=== PATIENT | female | born 1980 | race American Indian/Alaskan Native ===

== ENCOUNTER 2018-01-09 08:37 | Outpatient (CLI) | payer MEDICARE ==
[2018-01-09] MEDS ORDERED: XYLOCAINE TOPICAL 4% TP ONE ×2 (09:07→09:12)
== END 2018-01-09 08:38 | disposition home or self-care (01) ==
LOC: WOUND 08:37
PROVIDERS: ATTEND Surgery
DX: S81.802D Unspecified open wound, left lower leg, subsequent encounter (principal); K21.9 Gastro-esophageal reflux disease without esophagitis; J45.909 Unspecified asthma, uncomplicated; X58.XXXD Exposure to other specified factors, subsequent encounter
CPT/HCPCS: 11042; 11045; 97605; G0463

== ENCOUNTER 2018-01-15 11:24 | Outpatient (CLI) | payer MEDICARE ==
[2018-01-15] MEDS ORDERED: XYLOCAINE TOPICAL 4% TP ONE (12:01)
== END 2018-01-15 11:25 | disposition home or self-care (01) ==
LOC: WOUND 11:24
PROVIDERS: ATTEND Surgery
DX: S81.802D Unspecified open wound, left lower leg, subsequent encounter (principal); K21.9 Gastro-esophageal reflux disease without esophagitis; J45.909 Unspecified asthma, uncomplicated; X58.XXXD Exposure to other specified factors, subsequent encounter
CPT/HCPCS: 29581; 97605

== ENCOUNTER 2018-01-22 10:50 | Outpatient (CLI) | payer MEDICARE ==
[2018-01-22] MEDS ORDERED: XYLOCAINE TOPICAL 4% TP ONE ×2 (11:22→15:00)
== END 2018-01-22 10:51 | disposition home or self-care (01) ==
LOC: WOUND 10:50
PROVIDERS: ATTEND Surgery
DX: S81.802D Unspecified open wound, left lower leg, subsequent encounter (principal); K21.9 Gastro-esophageal reflux disease without esophagitis; J45.909 Unspecified asthma, uncomplicated; X58.XXXD Exposure to other specified factors, subsequent encounter
CPT/HCPCS: 29581; 97605

== ENCOUNTER 2018-02-05 11:06 | Outpatient (CLI) | payer MEDICARE ==
[2018-02-05] MEDS ORDERED: XYLOCAINE TOPICAL 4% TP ONE ×2 (11:32→11:51)
== END 2018-02-05 11:07 | disposition home or self-care (01) ==
LOC: WOUND 11:06
PROVIDERS: ATTEND Surgery
DX: S81.802D Unspecified open wound, left lower leg, subsequent encounter (principal); K21.9 Gastro-esophageal reflux disease without esophagitis; J45.909 Unspecified asthma, uncomplicated; X58.XXXD Exposure to other specified factors, subsequent encounter
CPT/HCPCS: 29581; 97605

== ENCOUNTER 2018-02-12 10:00 | Outpatient (CLI) | payer MEDICARE ==
[2018-02-12] MEDS ORDERED: XYLOCAINE TOPICAL 4% TP ONE ×2 (10:18→10:44)
== END 2018-02-12 10:01 | disposition home or self-care (01) ==
LOC: WOUND 10:00
PROVIDERS: ATTEND Surgery
DX: S81.802D Unspecified open wound, left lower leg, subsequent encounter (principal); K21.9 Gastro-esophageal reflux disease without esophagitis; J45.909 Unspecified asthma, uncomplicated; X58.XXXD Exposure to other specified factors, subsequent encounter
CPT/HCPCS: 29581

== ENCOUNTER 2018-02-19 10:34 | Outpatient (CLI) | payer MEDICARE ==
[~2018-02-19 10:34] MED LIST: XYLOCAINE TOPICAL 4% TP ONE
[2018-02-19] MEDS ORDERED: XYLOCAINE TOPICAL 4% TP ONE (10:57)
== END 2018-02-19 10:35 | disposition home or self-care (01) ==
LOC: WOUND 10:34
PROVIDERS: ATTEND Surgery
DX: S81.802D Unspecified open wound, left lower leg, subsequent encounter (principal); K21.9 Gastro-esophageal reflux disease without esophagitis; J45.909 Unspecified asthma, uncomplicated; X58.XXXD Exposure to other specified factors, subsequent encounter
CPT/HCPCS: 29581

== ENCOUNTER 2018-02-26 11:05 | Outpatient (CLI) | payer MEDICARE ==
[2018-02-26] MEDS ORDERED: XYLOCAINE TOPICAL 4% TP ONE ×2 (11:33→11:42)
== END 2018-02-26 11:06 | disposition home or self-care (01) ==
LOC: WOUND 11:05
PROVIDERS: ATTEND Surgery
DX: S81.802D Unspecified open wound, left lower leg, subsequent encounter (principal); K21.9 Gastro-esophageal reflux disease without esophagitis; X58.XXXD Exposure to other specified factors, subsequent encounter
CPT/HCPCS: 29581

== ENCOUNTER → 2018-03-12 | Outpatient (CLI) | payer MEDICARE | END | disposition home or self-care (01) | LOC: WOUND 10:19 | PROVIDERS: ATTEND Surgery | DX: S81.802D Unspecified open wound, left lower leg, subsequent encounter (principal); K21.9 Gastro-esophageal reflux disease without esophagitis; X58.XXXD Exposure to other specified factors, subsequent encounter ==

== ENCOUNTER 2018-04-23 10:46 | Outpatient (CLI) | payer MEDICARE ==
[2018-04-23] MEDS ORDERED: XYLOCAINE TOPICAL 4% TP ONE ×2 (10:58→11:58)
== END 2018-04-23 10:47 | disposition home or self-care (01) ==
LOC: WOUND 10:46
PROVIDERS: ATTEND Surgery
DX: S81.802D Unspecified open wound, left lower leg, subsequent encounter (principal); K21.9 Gastro-esophageal reflux disease without esophagitis; X58.XXXD Exposure to other specified factors, subsequent encounter

== ENCOUNTER 2018-04-30 10:52 | Outpatient (CLI) | payer MEDICARE | END 2018-04-30 10:53 | disposition home or self-care (01) | LOC: WOUND 10:52 | PROVIDERS: ATTEND Surgery | DX: S81.802D Unspecified open wound, left lower leg, subsequent encounter (principal); K21.9 Gastro-esophageal reflux disease without esophagitis; X58.XXXD Exposure to other specified factors, subsequent encounter ==

== ENCOUNTER 2018-05-21 10:57 | Outpatient (CLI) | payer MEDICARE ==
[2018-05-21] MEDS ORDERED: XYLOCAINE TOPICAL 4% TP ONE ×2 (11:09→11:11)
== END 2018-05-21 10:58 | disposition home or self-care (01) ==
LOC: WOUND 10:57
PROVIDERS: ATTEND Surgery
DX: S81.802D Unspecified open wound, left lower leg, subsequent encounter (principal); K21.9 Gastro-esophageal reflux disease without esophagitis; J45.909 Unspecified asthma, uncomplicated; X58.XXXD Exposure to other specified factors, subsequent encounter

== ENCOUNTER 2018-07-31 14:08 | Inpatient (IN) | payer MEDICARE ==
[2018-07-31] MEDS ORDERED: ATROVENT IH ONE (14:24)
[2018-07-31] MEDS ORDERED: NACL 0.9% 1000 ML 1,000 ML IV ONE (14:24)
[2018-07-31] MEDS ORDERED: PROVENTIL IH ONE (14:24)
[2018-07-31] MEDS ORDERED: SOLU-Medrol IV ONE (14:24)
--- NOTE | 2018-07-31 14:30 | Emergency Department Report ---
ED Shortness of Breath HPI - General Chief Complaint: Dyspnea/Respdistress Stated Complaint: SHORTNESS OF BREATH Time Seen by Provider: 07/31/18 14:10 Source: EMS, old records reviewed Mode of arrival: Stretcher Limitations: No Limitations - History of Present Illness Initial Comments: 38-year-old female with a past medical history of asthma, obesity, t hrombocytopenia, and GERD presents to the hospital complaining of progressively worsening shortness of breath 3 days. Patient using inhaler without improvement. Cough productive of clear sputum reported. Patient went to urgent care center today because she had headache, dizziness, and generalized weakness as well as shortness of breath. She denies pain, leg edema, fevers, home oxygen use, orthopnea, or PND. She is referred to the ED for evaluation. Patient was prescribed a nebulizer by the urgent care clinic. Patient does not use home oxygen therapy. Patient also states she takes steroids 3 times a week for thrombocytopenia. Night Monitor: Dr. LEVY No complaints of PMD: Dr. Perry - Related Data Home Medications Medication Instructions Recorded Confirmed Last Taken Prevacid 40 mg PO DAILY 11/20/17 12/20/17 11/19/17 Previous Rx's Medication Instructions Recorded Last Taken Type Acetaminophen [Acetaminophen TAB] 650 mg PO Q4H PRN #30 tablet 12/21/17 Unknown Rx Amoxicillin/Potassium Clav 1 each PO BID #42 tablet 12/21/17 Unknown Rx [Augmentin 875-125 Tablet] HYDROcodone/APAP 5-325 [[place] 1 each PO Q4H PRN #20 tablet 12/21/17 Unknown Rx 5-325 mg TAB] Pantoprazole [Protonix TAB] 40 mg PO DAILY #30 tablet 12/21/17 Unknown Rx Allergies Allergy/AdvReac Type Severity Reaction Status Date / Time No Known Allergies Allergy Unverified 06/02/16 19:34 ED Review of Systems ROS: Stated complaint: SHORTNESS OF BREATH Other details as noted in HPI Comment: All other systems reviewed and negative ED Past Medical Hx - Past Medical History Hx GERD: Yes Hx Asthma: Yes Additional medical history: obesity. Thrombocytopenia - Social History Smoking Status: Never Smoker - Medications Home Medications: Home Medications Medication Instructions Recorded Confirmed Last Taken Type Prevacid 40 mg PO DAILY 11/20/17 12/20/17 11/19/17 History Acetaminophen [Acetaminophen TAB] 650 mg PO Q4H PRN #30 tablet 12/21/17 Unknown Rx Amoxicillin/Potassium Clav 1 each PO BID #42 tablet 12/21/17 Unknown Rx [Augmentin 875-125 Tablet] HYDROcodone/APAP 5-325 [[place] 1 each PO Q4H PRN #20 tablet 12/21/17 Unknown Rx 5-325 mg TAB] Pantoprazole [Protonix TAB] 40 mg PO DAILY #30 tablet 12/21/17 Unknown Rx ED Physical Exam - General Limitations: No Limitations - Other Other exam information: General: No limitations, patient is alert in no acute distress Head exam: Atraumatic, normocephalic Eyes exam: Normal appearance, pupils equal reactive to light, extraocular movements intact ENT: Moist mucous membrane, normal oropharynx Neck exam: Normal inspection, full range of motion, no meningismus nontender Respiratory exam: No tachypnea or accessory muscle use. Patient has mild crackles at bilateral bases with expiratory wheeze Cardiovascular: Tachycardia regular rhythm Abdomen: Soft, nondistended, and nontender, with normal bowel sounds, no rebound, or guarding Extremity: Full range of motion, no edema or calf tenderness. Distal anterior left leg healed long from previous infected ulcer Back: Normal Inspection, full range of motion, no tenderness Neurologic: Alert, oriented x3, cranial nerves intact, no motor or sensory deficit Psychiatric: normal affect, normal mood Skin: Warm, dry, intact ED Course Vital Signs 07/31/18 07/31/18 14:12 14:45 Temperature 98.0 F Pulse Rate 121 H Pulse Rate [ 110 H Anterior Bilateral Throughout] Respiratory 26 H Rate Respiratory 18 Rate [Anterior Bilateral Throughout] Blood Pressure 129/84 O2 Sat by Pulse 92 Oximetry - Reevaluation(s) Reevaluation #1: 07/31/18 16:02 Initial CBC values not released by lab. Repeat ordered and pending at disposition ED Medical Decision Making - Lab Data Result diagrams: 07/31/18 14:44 07/31/18 14:44 - EKG Data -: EKG Interpreted by Me EKG shows normal: sinus rhythm, axis (qrs 33), QRS complexes (qrsd 90), ST-T waves (ant and lat t wave inv) Rate: tachycardia (113) - EKG Data When compared to previous EKG there are: previous EKG unavailable - Radiology Data Radiology results: report reviewed FINAL REPORT EXAM: XR CHEST ROUTINE 2V HISTORY: Shortness of breath COMPARISON: None. TECHNIQUE: Frontal and lateral views of the chest FINDINGS: The cardiomediastinal silhouette is normal in appearance. There are hazy opacities at the bilateral lung bases. There is mild blunting of the bilateral costophrenic angles. There is no acute bony or soft tissue abnormality. IMPRESSION: Hazy opacities at the bilateral lung bases, that may reflect atelectasis or infiltrate. Blunting of the bilateral costophrenic angles that may represent small pleural effusions. - Medical Decision Making Patient has significant bilateral crackles, elevated BNP, and a mildly elevated troponin. Patient does have a cough productive of clear sputum with very minimal wheezing. Differential includes infectious versus failure. Rocephin and azithromycin provided for possible pneumonia. I discontinued 1 L bolus no rmal saline after 200 mL because crackles persist. Repeat CBC pending at disposition. Aspirin was ordered for elevated troponin. Patient also has elevated CK and states she only takes an inhaler, vacation for GERD, and a steroid 3 times a day for her platelet count. - Differential Diagnosis asthma, bronchitis, pneumonia, CHF, viral syndrome, PE Critical Care Time: No Critical care attestation.: If time is entered above; I have spent that time in minutes in the direct care of this critically ill patient, excluding procedure time. ED Disposition Clinical Impression: Bilateral pneumonia, Elevated CK, Elevated brain natriuretic peptide (BNP) level, Elevated troponin, Hx of thrombocytopenia, Hyperkalemia Disposition: OP ADMIT IP TO THIS HOSP Is pt being admited?: Yes Does the pt Need Aspirin: Yes Condition: Stable Time of Disposition: 16:13 (Dr hawley/hosp)
[2018-07-31] MEDS ORDERED: MAGNESIUM SULFATE 2GM/50ML 2 GM/50 ML BAG IV ONE (15:20)
[2018-07-31 15:29] LABS: BUN/Creatinine Ratio 28; Blood Urea Nitrogen 11 mg/dL (7-17); Calcium 8.6 mg/dL (8.4-10.2); Hemolysis Index 283; INR 1.1 (0.87-1.13)
[2018-07-31 15:35] LABS: Creatine Kinase MB 11.8 ng/mL (0.0-4.0)
--- NOTE | 2018-07-31 15:50 | XRay Report ---
FINAL REPORT EXAM: XR CHEST ROUTINE 2V HISTORY: Shortness of breath COMPARISON: None. TECHNIQUE: Frontal and lateral views of the chest FINDINGS: The cardiomediastinal silhouette is normal in appearance. There are hazy opacities at the bilateral lung bases. There is mild blunting of the bilateral costoph renic angles. There is no acute bony or soft tissue abnormality. IMPRESSION: Hazy opacities at the bilateral lung bases, that may reflect atelectasis or infiltrate. Blunting of the bilateral costophrenic angles that may represent small pleural effusions.
[2018-07-31] MEDS ORDERED: ASPIRIN PO ONE (15:55)
[2018-07-31 15:58] LABS: Hematocrit TNR % (30.3-42.9); Hemoglobin TNR gm/dl (10.1-14.3); Mean Corpuscular Volume TNR fl (79-97); Red Blood Count TNR M/mm3 (3.65-5.03)
[2018-07-31 15:59] LABS: Mean Corpuscular HGB Conc TNR % (30-34); Mean Platelet Volume TNR fl (6-12); Platelet Count TNR K/mm3 (140-440); Red Cell Distribution Width TNR % (13.2-15.2)
[2018-07-31 16:00] LABS: Lymphocytes % (Auto) TNR % (13.4-35.0)
[2018-07-31] MEDS ORDERED: ROCEPHIN/NS 1 GM/50 ML 1 GM/50 ML BAG IV ONE (16:00)
[2018-07-31 16:01] LABS: Basophils # (Auto) TNR K/mm3 (0.0-0.1); Basophils % (Auto) TNR % (0.0-1.8); Eosinophils # (Auto) TNR K/mm3 (0.0-0.4); Eosinophils % (Auto) TNR % (0.0-4.3); Lymphocytes # (Auto) TNR K/mm3 (1.2-5.4); Monocytes # (Auto) TNR K/mm3 (0.0-0.8); Monocytes % (Auto) TNR % (0.0-7.3)
[2018-07-31 16:40] LABS: Chol/HDL Ratio 2.25 %
[2018-07-31 16:58] LABS: Mean Corpuscular HGB Conc 31 % (30-34); Mean Corpuscular Volume 75 fl (79-97); Platelet Count 100 K/mm3 (140-440); Red Blood Count 5.17 M/mm3 (3.65-5.03); Red Cell Distribution Width 16.2 % (13.2-15.2)
[2018-07-31] MEDS ORDERED: ZITHROMAX 500 MG in NACL 0.9% 250ML 250 ML IV ONE (17:00)
[2018-07-31 17:55] LABS: Basophils % (Manual) 0 % (0.0-1.8); Eosinophils % (Manual) 0 % (0.0-4.3); Monocytes % (Manual) 0 % (0.0-7.3); Total Cells Counted 100
[2018-07-31 17:56] LABS: Anisocytosis 1+; Ovalocytes Few; Poikilocytosis 1+
[2018-07-31 17:57] LABS: Platelet Estimate Consistent w Auto; Target Cells Few
[2018-07-31] MEDS ORDERED: ROCEPHIN IM ONE (20:22)
[2018-07-31] MEDS ORDERED: TYLENOL PO PRN (22:07)
[2018-07-31] MEDS ORDERED: SODIUM CHLORIDE FLUSH SYRINGE 10 ML IV PRN (22:07)
[2018-07-31] MEDS ORDERED: ZOFRAN IV PRN (22:07)
[2018-07-31] MEDS: PERCOCET 5/325 PO PRN (23:05)
[2018-07-31] MEDS: SOLU-Medrol IV SCH (23:07)
[2018-08-01] MEDS: SOLU-Medrol IV SCH ×4 (00:43→19:25)
--- NOTE | 2018-08-01 07:19 | Event Note ---
Date: 07/31/18 Please see H/p in Reports
--- NOTE | 2018-08-01 07:46 | History and Physical Report ---
CHIEF COMPLAINT: Increasing shortness of breath for 3 days. HISTORY OF PRESENT ILLNESS: A 66-tenur-bel female with past medical history of asthma, obesity, thrombocytopenia, presents with worsening shortness of breath for the last 3 days. Cough productive of mucoid sputum. The patient went to urgent care, was referred to the ER for evaluation. The patient was given a nebulizer treatment in the Emergency Room. PAST MEDICAL HISTORY: Significant for asthma and gastroesophageal reflux disease, obesity, thrombocytopenia. SOCIAL HISTORY: Does not smoke. PAST SURGICAL HISTORY: None. FAMILY HISTORY: Hypertension. REVIEW OF SYSTEMS: Significant for shortness of breath and wheezing. PHYSICAL EXAMINATION: GENERAL: A middle-aged female, cooperative during examination, in slight respiratory distress. VITAL SIGNS: Blood pressure is 136/86, temperature 98.4, pulse is 121, respirations are 18, sats are 81-82%. HEENT: Unremarkable. NECK: Supple, no lymphadenopathy, no thyromegaly. LUNGS: Scattered rhonchi bilaterally. CARDIOVASCULAR: Accessory muscles of respiration are prominent. CARDIOVASCULAR: S1, S2 heard. No gallop, no murmur, no rub. Apical impulse in the left fifth intercostal space and midclavicular line. ABDOMEN: Soft and benign. No hepatosplenomegaly. No guarding, no rigidity. Hernial orifices are normal. EXTREMITIES: Good pedal pulses. No pedal edema. DIAGNOSTIC STUDIES: Chest x-ray shows hazy opacity bilateral lung bases that may reflect infiltrate. Blunting of the bilateral costophrenic angles that may represent pleural effusion. LABORATORY DATA: Significant for white count of 12,400, H and H are 12.0 and 39.0, MCH is low, platelet count is 100,000. Electrolytes: Sodium of 136, potassium of 5.2, bicarbonate of 25, chloride of 97.5, total creatinine kinase is 1119. Troponin is 0.079, 0.065. and 0.049. BNP is 15,817. ASSESSMENT AND PLAN: 1. Acute respiratory failure. The patient has low sats. The patient's clinical picture consistent with CHF exacerbation. BNP is 15,817. Lasix initiated. Echocardiogram ordered. 2. Chronic obstructive pulmonary disease exacerbation. The patient on DuoNeb and Levaquin and low dose Solu-Medrol. 3. Elevated troponin secondary to elevated creatinine kinase. Mild rhabdomyolysis. IV fluids gently because of the CHF. 4. Hyponatremia, mild. 5. Hyperkalemia, mild, should correct with the Lasix. 6. Deep venous thrombosis prophylaxis, Lovenox 40 mg subcutaneous daily. JOB# [id number] ESCOBAR/NTS
[2018-08-01] MEDS ORDERED: LASIX IV SCH (08:00)
[2018-08-01 08:18] LABS: Basophils % (Auto) 0.2 % (0.0-1.8); Hematocrit 35.3 % (30.3-42.9); Lymphocytes # (Auto) 0.9 K/mm3 (1.2-5.4); Lymphocytes % (Auto) 15.2 % (13.4-35.0); Mean Corpuscular HGB Conc 31 % (30-34); Mean Corpuscular Volume 75 fl (79-97); Monocytes # (Auto) 0.7 K/mm3 (0.0-0.8); Monocytes % (Auto) 10.6 % (0.0-7.3); Red Blood Count 4.71 M/mm3 (3.65-5.03); Red Cell Distribution Width 15.9 % (13.2-15.2)
[2018-08-01 08:41] LABS: Alanine Aminotransferase 37 units/L (7-56); Albumin 3.6 g/dL (3.9-5); BUN/Creatinine Ratio 26; Blood Urea Nitrogen 13 mg/dL (7-17); Calcium 8.7 mg/dL (8.4-10.2); Hemolysis Index 29
[2018-08-01] MEDS: DUONEB *Not for PRN Use IH SCH ×4 (09:07→20:53)
[2018-08-01] MEDS: PEPCID IV SCH ×2 (09:28→21:43)
[2018-08-01] MEDS ORDERED: K-DUR PO SCH (10:00)
[2018-08-01 10:22] LABS: Platelet Count 113 K/mm3 (140-440)
[2018-08-01] MEDS: SODIUM CHLORIDE FLUSH SYRINGE 10 ML IV SCH ×2 (12:06→21:46)
[2018-08-01] MEDS: ROCEPHIN/NS 2 GM/100 ML 2 GM/100 ML BAG IV SCH (12:06)
--- NOTE | 2018-08-01 13:08 | Consultation ---
History of Present Illness Consult date: 08/01/18 Requesting physician: GIANLUCA LEMA Consult reason: shortness of breath History of present illness: The pt is a 38-year-old female with a past medical history of asthma, obesity, thrombocytopenia, and GERD. She is previously unknown to our practice. She presented to the hospital complaining of progressively worsening shortness of breath 3 days. Patient using inhaler without improvement. Cough productive of clear sputum reported. Patient went to urgent care center yesterday because she had headache, dizziness, and generalized weakness as well as shortness of breath. She was told her O2 sat was "low" and was referred from urgent care to the ED for evaluation. Patient was prescribed a nebulizer by the urgent care clinic. Patient does not use home oxygen therapy. Patient also states she takes steroids 3 times a week for thrombocytopenia. Tracer Bullet Charging Machine Operator: Dr. LEVY; PMD: Dr. Perry. She denies any prior cardiac issues, including CAD, AMI or HF. She denies any prior cardiac evaluation. Past History Past Medical History: GERD, other (asthma) Social history: denies: smoking, alcohol abuse, prescription drug abuse Medications and Allergies Allergies Allergy/AdvReac Type Severity Reaction Status Date / Time No Known Allergies Allergy Unverified 06/02/16 19:34 Home Medications Medication Instructions Recorded Confirmed Last Taken Type Pantoprazole [Protonix TAB] 40 mg PO DAILY #30 tablet 12/21/17 07/31/18 Unknown Rx Active Meds: Active Medications Acetaminophen (Tylenol) 650 mg PO Q4H PRN PRN Reason: Pain MILD(1-3)/Fever >100.5/BROWN Albuterol/Ipratropium (Duoneb *Not For Prn Use*) 1 ampul IH QIDRT [facility] Last Admin: 08/01/18 09:07 Dose: 1 ampul Documented by: Famotidine (Pepcid) 20 mg IV BID [facility] Last Admin: 08/01/18 09:28 Dose: 20 mg Documented by: Furosemide (Lasix) 40 mg IV QAM@0800 [facility] Last Admin: 08/01/18 09:29 Dose: 40 mg Documented by: Hydromorphone HCl (Dilaudid) 0.5 mg IV Q3H PRN PRN Reason: Pain , Severe (7-10) Ceftriaxone Sodium (Rocephin/Ns 2 Gm/100 Ml) 2 gm in 100 mls @ 200 mls/hr IV Q24HR [facility]; Protocol Last Admin: 08/01/18 12:06 Dose: 200 mls/hr Documented by: Methylprednisolone Sodium Succinate (Solu-Medrol) 40 mg IV Q8H [facility] Last Admin: 08/01/18 09:28 Dose: 40 mg Documented by: Ondansetron HCl (Zofran) 4 mg IV Q8H PRN PRN Reason: Nausea And Vomiting Oxycodone/Acetaminophen (Percocet 5/325) 1 tab PO Q6H PRN PRN Reason: Pain, Moderate (4-6) Last Admin: 07/31/18 23:05 Dose: 1 tab Documented by: Potassium Chloride (K-Dur) 20 meq PO QDAY [facility] Last Admin: 08/01/18 09:29 Dose: 20 meq Documented by: Sodium Chloride (Sodium Chloride Flush Syringe 10 Ml) 10 ml IV BID [facility] Last Admin: 08/01/18 12:06 Dose: 10 ml Documented by: Sodium Chloride (Sodium Chloride Flush Syringe 10 Ml) 10 ml IV PRN PRN PRN Reason: LINE FLUSH Review of Systems Constitutional: no fever, no chills, no sweats Ears, nose, mouth and throat: no ear pain, no nose pain, no sinus pressure, no sinus pain Cardiovascular: shortness of breath, no chest pain, no orthopnea, no palpitations, no rapid/irregular heart beat, no edema, no syncope, no lightheadedness, no high blood pressure, no leg edema Respiratory: cough, shortness of breath, congestion, wheezing, no pain on inspiration Gastrointestinal: no abdominal pain, no nausea, no vomiting, no diarrhea, no constipation Genitourinary Female: no pelvic pain, no flank pain, no dysuria, no urinary frequency, no urgency Musculoskeletal: no neck stiffness, no neck pain, no shooting arm pain, no arm numbness/tingling, no low back pain, no shooting leg pain Integumentary: no rash, no pruritis, no redness, no sores, no wounds Neurological: no head injury, no paralysis, no weakness, no parathesias, no numbness, no tingling, no seizures, no syncope Psychiatric: no anxiety Endocrine: no cold intolerance, no heat intolerance Hematologic/Lymphatic: no easy bruising, no easy bleeding Allergic/Immunologic: no urticaria, no wheezing Physical Examination Vital Signs Temp Pulse Resp BP Pulse Ox 98.0 F 121 H 26 H 129/84 92 07/31/18 14:12 07/31/18 14:12 07/31/18 14:12 07/31/18 14:12 07/31/18 14:12 General appearance: no acute distress HEENT: Positive: PERRL, Normocephaly, Mucus Membranes Moist Neck: Positive: neck supple, trachea midline Cardiac: Positive: Reg Rate and Rhythm, S1/S2 Lungs: Positive: Wheezes Neuro: Positive: Grossly Intact Abdomen: Positive: Soft. Negative: Tender Skin: Negative: Rash, Wound Musculoskeletal: No Pain Extremities: Absent: edema Results 08/01/18 07:40 08/01/18 07:40 Cardiac Enzymes 07/31/18 08/01/18 Range/Units 14:44 07:40 AST 29 (5-40) units/L CK-MB (CK-2) 11.8 H (0.0-4.0) ng/mL Coagulation 07/31/18 Range/Units 14:44 PT 14.6 (12.2-14.9) Sec. INR 1.10 (0.87-1.13) Lipids 07/31/18 Range/Units 14:44 Triglycerides 90 (2-149) mg/dL Cholesterol 151 (50-199) mg/dL HDL Cholesterol 67 H (40-59) mg/dL Cholesterol/HDL Ratio 2.25 % CBC 07/31/18 07/31/18 08/01/18 Range/Units 14:44 16:20 07:40 WBC TNR 12.4 H 6.2 RBC TNR 5.17 H 4.71 Hgb TNR 12.0 11.0 Hct TNR 39.0 35.3 Plt Count TNR 100 L 113 L Lymph # TNR 0.9 L [place] # TNR 0.7 Eos # TNR 0.0 Baso # TNR 0.0 Comprehensive Metabolic Panel 07/31/18 08/01/18 Range/Units 14:44 07:40 Sodium 136 L 138 (137-145) mmol/L Potassium 5.2 H 4.7 (3.6-5.0) mmol/L Chloride 97.5 L 101.6 (98-107) mmol/L Carbon Dioxide 25 24 (22-30) mmol/L BUN 11 13 (7-17) mg/dL Creatinine 0.4 L 0.5 L (0.7-1.2) mg/dL Glucose 120 H 137 H (65-100) mg/dL Calcium 8.6 8.7 (8.4-10.2) mg/dL AST 29 (5-40) units/L ALT 37 (7-56) units/L Alkaline Phosphatase 67 (35-129) units/L Total Protein 7.4 (6.3-8.2) g/dL Albumin 3.6 L (3.9-5) g/dL - Imaging and Cardiology Echo: report reviewed EKG: report reviewed, image reviewed EKG interpretations - Telemetry EKG Rhythm: Sinus Rhythm - EKG Sinus rhythms and dysrhythmias: sinus tachycardia Repolarization changes or abnormalities: nonspecific abnormality, ST segment, and/or T wave Assessment and Plan Echo reviewed - EF 35-40%, RV mild to mod dilated, RA mildly dilated, mod pulm HTN, increased RA pressure. Increase IV lasix to BID dosing. Will not initiate BB at this time in setting of asthma exacerbation. Consider lexiscan MPI stress test to r/o ischemic CMP once medically stabilized - this can be done as OP. The patient has been seen in conjunction with Dr. De Guzman who agrees with the assessment and plan of care. - Patient Problems (1) Acute HFrEF (heart failure with reduced ejection fraction) Current Visit: Yes Status: Acute (2) Cardiomyopathy Current Visit: Yes Status: Chronic (3) Pneumonia Current Visit: Yes Status: Acute (4) Asthma exacerbation Current Visit: Yes Status: Acute (5) Thrombocytopenia Current Visit: Yes Status: Chronic (6) GERD (gastroesophageal reflux disease) Current Visit: Yes Status: Chronic Qualifiers: Esophagitis presence: without esophagitis Qualified Code(s): K21.9 - Gastro-esophageal reflux disease without esophagitis (7) Obesity Current Visit: Yes Status: Chronic
--- NOTE | 2018-08-01 17:03 | Progress Note ---
Assessment and Plan Assessment and plan: Acute systolic CHF EF 30-35% Lasix iv cardiology following Asthma Hyperkalemia Now resolved Obesity. I counseled her on diet and exercise Possible pneumonia as per CXR Empiric iv Abx Repeat CXR in few days History Interval history: shortness of breath Hospitalist Physical - Physical exam Narrative exam: GEN: Not in acute distress, obese HEENT: Normocephalic, atraumatic, Neck: supple, No JVD Lungs: Bilateral crackles, no wheeze Heart:S1 and S2 regular, no murmurs, rubs or gallop, Abd:soft, non tender, non distended, normal bowel sounds Ext: No edema, no clubbing or cyanosis Neuro: AAO x 3, No focal signs - Constitutional Vitals: Temp Pulse Resp BP Pulse Ox 97.9 F 99 H 18 133/78 91 08/01/18 16:02 08/01/18 16:02 08/01/18 16:02 08/01/18 16:02 08/01/18 16:02 General appearance: Present: no acute distress Results - Labs CBC & Chem 7: 08/01/18 07:40 08/01/18 07:40 Labs: Laboratory Last Values WBC 6.2 K/mm3 (4.5-11.0) 08/01/18 07:40 RBC 4.71 M/mm3 (3.65-5.03) 08/01/18 07:40 Hgb 11.0 gm/dl (10.1-14.3) 08/01/18 07:40 Hct 35.3 % (30.3-42.9) 08/01/18 07:40 MCV 75 fl (79-97) L 08/01/18 07:40 MCH 23 pg (28-32) L 08/01/18 07:40 MCHC 31 % (30-34) 08/01/18 07:40 RDW 15.9 % (13.2-15.2) H 08/01/18 07:40 Plt Count 113 K/mm3 (140-440) L 08/01/18 07:40 Lymph % (Auto) 15.2 % (13.4-35.0) 08/01/18 07:40 [place] % (Auto) 10.6 % (0.0-7.3) H 08/01/18 07:40 Eos % (Auto) 0.0 % (0.0-4.3) 08/01/18 07:40 Baso % (Auto) 0.2 % (0.0-1.8) 08/01/18 07:40 Lymph # 0.9 K/mm3 (1.2-5.4) L 08/01/18 07:40 [place] # 0.7 K/mm3 (0.0-0.8) 08/01/18 07:40 Eos # 0.0 K/mm3 (0.0-0.4) 08/01/18 07:40 Baso # 0.0 K/mm3 (0.0-0.1) 08/01/18 07:40 Add Manual Diff Complete 07/31/18 16:20 Total Counted 100 07/31/18 16:20 Seg Neutrophils % 74.0 % (40.0-70.0) H 08/01/18 07:40 Seg Neuts % (Manual) 99.0 % (40.0-70.0) H 07/31/18 16:20 Band Neutrophils % 0 % 07/31/18 16:20 Lymphocytes % (Manual) 1.0 % (13.4-35.0) L 07/31/18 16:20 Reactive Lymphs % (Man) 0 % 07/31/18 16:20 Monocytes % (Manual) 0 % (0.0-7.3) 07/31/18 16:20 Eosinophils % (Manual) 0 % (0.0-4.3) 07/31/18 16:20 Basophils % (Manual) 0 % (0.0-1.8) 07/31/18 16:20 Metamyelocytes % 0 % 07/31/18 16:20 Myelocytes % 0 % 07/31/18 16:20 Promyelocytes % 0 % 07/31/18 16:20 Blast Cells % 0 % 07/31/18 16:20 Nucleated RBC % Not Reportable 07/31/18 16:20 Seg Neutrophils # 4.6 K/mm3 (1.8-7.7) 08/01/18 07:40 Seg Neutrophils # Man 12.3 K/mm3 (1.8-7.7) H 07/31/18 16:20 Band Neutrophils # 0.0 K/mm3 07/31/18 16:20 Lymphocytes # (Manual) 0.1 K/mm3 (1.2-5.4) L 07/31/18 16:20 Abs React Lymphs (Man) 0.0 K/mm3 07/31/18 16:20 Monocytes # (Manual) 0.0 K/mm3 (0.0-0.8) 07/31/18 16:20 Eosinophils # (Manual) 0.0 K/mm3 (0.0-0.4) 07/31/18 16:20 Basophils # (Manual) 0.0 K/mm3 (0.0-0.1) 07/31/18 16:20 Metamyelocytes # 0.0 K/mm3 07/31/18 16:20 Myelocytes # 0.0 K/mm3 07/31/18 16:20 Promyelocytes # 0.0 K/mm3 07/31/18 16:20 Blast Cells # 0.0 K/mm3 07/31/18 16:20 WBC Morphology Not Reportable 07/31/18 16:20 Hypersegmented Neuts Not Reportable 07/31/18 16:20 Hyposegmented Neuts Not Reportable 07/31/18 16:20 Hypogranular Neuts Not Reportable 07/31/18 16:20 Smudge Cells Not Reportable 07/31/18 16:20 Toxic Granulation Not Reportable 07/31/18 16:20 Toxic Vacuolation Not Reportable 07/31/18 16:20 Dohle Bodies Not Reportable 07/31/18 16:20 Pelger-Huet Anomaly Not Reportable 07/31/18 16:20 Laura Rods Not Reportable 07/31/18 16:20 Platelet Estimate Consistent w auto 07/31/18 16:20 Clumped Platelets Not Reportable 07/31/18 16:20 Plt Clumps, EDTA Not Reportable 07/31/18 16:20 Large Platelets Not Reportable 07/31/18 16:20 Giant Platelets Not Reportable 07/31/18 16:20 Platelet Satelliting Not Reportable 07/31/18 16:20 Plt Morphology Comment Not Reportable 07/31/18 16:20 RBC Morphology Not Reportable 07/31/18 16:20 Dimorphic RBCs Not Reportable 07/31/18 16:20 Polychromasia Few 07/31/18 16:20 Hypochromasia Not Reportable 07/31/18 16:20 Poikilocytosis 1+ 07/31/18 16:20 Anisocytosis 1+ 07/31/18 16:20 Microcytosis 1+ 07/31/18 16:20 Macrocytosis Not Reportable 07/31/18 16:20 Spherocytes Not Reportable 07/31/18 16:20 Pappenheimer Bodies Not Reportable 07/31/18 16:20 Sickle Cells Not Reportable 07/31/18 16:20 Target Cells Few 07/31/18 16:20 Tear Drop Cells Not Reportable 07/31/18 16:20 Ovalocytes Few 07/31/18 16:20 Helmet Cells Not Reportable 07/31/18 16:20 [place] Bodies Not Reportable 07/31/18 16:20 [place] Rings Not Reportable 07/31/18 16:20 [place] Cells Not Reportable 07/31/18 16:20 Bite Cells Not Reportable 07/31/18 16:20 Crenated Cell Not Reportable 07/31/18 16:20 Elliptocytes Not Reportable 07/31/18 16:20 Acanthocytes (Spur) Not Reportable 07/31/18 16:20 Rouleaux Not Reportable 07/31/18 16:20 Hemoglobin C Crystals Not Reportable 07/31/18 16:20 Schistocytes Not Reportable 07/31/18 16:20 Malaria parasites Not Reportable 07/31/18 16:20 Augie Bodies Not Reportable 07/31/18 16:20 Hem Pathologist Commnt No 07/31/18 16:20 PT 14.6 Sec. (12.2-14.9) 07/31/18 14:44 INR 1.10 (0.87-1.13) 07/31/18 14:44 Sodium 138 mmol/L (137-145) 08/01/18 07:40 Potassium 4.7 mmol/L (3.6-5.0) 08/01/18 07:40 Chloride 101.6 mmol/L (98-107) 08/01/18 07:40 Carbon Dioxide 24 mmol/L (22-30) 08/01/18 07:40 Anion Gap 17 mmol/L 08/01/18 07:40 BUN 13 mg/dL (7-17) 08/01/18 07:40 Creatinine 0.5 mg/dL (0.7-1.2) L 08/01/18 07:40 Estimated GFR > 60 ml/min 08/01/18 07:40 BUN/Creatinine Ratio 26 % 08/01/18 07:40 Glucose 137 mg/dL (65-100) H 08/01/18 07:40 Hemoglobin A1c 6.7 % (4-6) H 07/31/18 Unknown Calcium 8.7 mg/dL (8.4-10.2) 08/01/18 07:40 Total Bilirubin 0.60 mg/dL (0.1-1.2) 08/01/18 07:40 AST 29 units/L (5-40) 08/01/18 07:40 ALT 37 units/L (7-56) 08/01/18 07:40 Alkaline Phosphatase 67 units/L (35-129) 08/01/18 07:40 Total Creatine Kinase 1119 units/L (30-135) H 07/31/18 14:44 CK-MB (CK-2) 11.8 ng/mL (0.0-4.0) H 07/31/18 14:44 CK-MB (CK-2) Rel Index 1.0 (0-4) 07/31/18 14:44 Troponin T 0.049 ng/mL (0.00-0.029) H D 07/31/18 20:16 NT-Pro-B Natriuret Pep 30098 pg/mL (0-450) H 07/31/18 14:44 Total Protein 7.4 g/dL (6.3-8.2) 08/01/18 07:40 Albumin 3.6 g/dL (3.9-5) L 08/01/18 07:40 Albumin/Globulin Ratio 0.9 % 08/01/18 07:40 Triglycerides 90 mg/dL (2-149) 07/31/18 14:44 Cholesterol 151 mg/dL (50-199) 07/31/18 14:44 LDL Cholesterol Direct 77 mg/dL (50-130) 07/31/18 14:44 HDL Cholesterol 67 mg/dL (40-59) H 07/31/18 14:44 Cholesterol/HDL Ratio 2.25 % 07/31/18 14:44
[2018-08-01] MEDS: LASIX IV SCH (18:50)
[2018-08-01] MEDS ORDERED: ZITHROMAX 500 MG in NACL 0.9% 250ML 250 ML IV SCH (23:45)
[2018-08-02] MEDS: SOLU-Medrol IV SCH ×3 (01:28→22:07)
[2018-08-02] MEDS: DILAUDID IV PRN ×2 (02:12→05:29)
[2018-08-02] MEDS ORDERED: BENADRYL IV NR (03:23)
[2018-08-02] MEDS: PERCOCET 5/325 PO PRN (03:42)
[2018-08-02] MEDS: LASIX IV SCH ×2 (05:32→19:53)
--- NOTE | 2018-08-02 09:27 | Progress Note ---
Assessment and Plan Assessment and plan: Acute systolic CHF EF 30-35% Lasix iv cardiology following Acute resp failure with hypoxia. Asthma solu-medrol Hyperkalemia Now resolved Obesity. I counseled her on diet and exercise Pneumonia as per CXR Continue iv Abx Full code status Thrombocytopenia Poss dc home tomorrow if o2 sat on RA ok History Interval history: Shortness of breath Hospitalist Physical - Physical exam Narrative exam: GEN: Not in acute distress, obese HEENT: Normocephalic, atraumatic, Neck: supple, No JVD Lungs: Bilateral crackles, no wheeze Heart:S1 and S2 regular, no murmurs, rubs or gallop, Abd:soft, non tender, non distended, normal bowel sounds Ext: No edema, no clubbing or cyanosis Neuro: AAO x 3, No focal signs - Constitutional Vitals: Temp Pulse Resp BP Pulse Ox 98.5 F 106 H 18 118/84 95 08/02/18 04:18 08/02/18 04:18 08/02/18 04:18 08/02/18 04:18 08/02/18 04:18 General appearance: Present: no acute distress Results - Labs CBC & Chem 7: 08/01/18 07:40 08/01/18 07:40 Labs: Laboratory Last Values WBC 6.2 K/mm3 (4.5-11.0) 08/01/18 07:40 RBC 4.71 M/mm3 (3.65-5.03) 08/01/18 07:40 Hgb 11.0 gm/dl (10.1-14.3) 08/01/18 07:40 Hct 35.3 % (30.3-42.9) 08/01/18 07:40 MCV 75 fl (79-97) L 08/01/18 07:40 MCH 23 pg (28-32) L 08/01/18 07:40 MCHC 31 % (30-34) 08/01/18 07:40 RDW 15.9 % (13.2-15.2) H 08/01/18 07:40 Plt Count 113 K/mm3 (140-440) L 08/01/18 07:40 Lymph % (Auto) 15.2 % (13.4-35.0) 08/01/18 07:40 [place] % (Auto) 10.6 % (0.0-7.3) H 08/01/18 07:40 Eos % (Auto) 0.0 % (0.0-4.3) 08/01/18 07:40 Baso % (Auto) 0.2 % (0.0-1.8) 08/01/18 07:40 Lymph # 0.9 K/mm3 (1.2-5.4) L 08/01/18 07:40 [place] # 0.7 K/mm3 (0.0-0.8) 08/01/18 07:40 Eos # 0.0 K/mm3 (0.0-0.4) 08/01/18 07:40 Baso # 0.0 K/mm3 (0.0-0.1) 08/01/18 07:40 Add Manual Diff Complete 07/31/18 16:20 Total Counted 100 07/31/18 16:20 Seg Neutrophils % 74.0 % (40.0-70.0) H 08/01/18 07:40 Seg Neuts % (Manual) 99.0 % (40.0-70.0) H 07/31/18 16:20 Band Neutrophils % 0 % 07/31/18 16:20 Lymphocytes % (Manual) 1.0 % (13.4-35.0) L 07/31/18 16:20 Reactive Lymphs % (Man) 0 % 07/31/18 16:20 Monocytes % (Manual) 0 % (0.0-7.3) 07/31/18 16:20 Eosinophils % (Manual) 0 % (0.0-4.3) 07/31/18 16:20 Basophils % (Manual) 0 % (0.0-1.8) 07/31/18 16:20 Metamyelocytes % 0 % 07/31/18 16:20 Myelocytes % 0 % 07/31/18 16:20 Promyelocytes % 0 % 07/31/18 16:20 Blast Cells % 0 % 07/31/18 16:20 Nucleated RBC % Not Reportable 07/31/18 16:20 Seg Neutrophils # 4.6 K/mm3 (1.8-7.7) 08/01/18 07:40 Seg Neutrophils # Man 12.3 K/mm3 (1.8-7.7) H 07/31/18 16:20 Band Neutrophils # 0.0 K/mm3 07/31/18 16:20 Lymphocytes # (Manual) 0.1 K/mm3 (1.2-5.4) L 07/31/18 16:20 Abs React Lymphs (Man) 0.0 K/mm3 07/31/18 16:20 Monocytes # (Manual) 0.0 K/mm3 (0.0-0.8) 07/31/18 16:20 Eosinophils # (Manual) 0.0 K/mm3 (0.0-0.4) 07/31/18 16:20 Basophils # (Manual) 0.0 K/mm3 (0.0-0.1) 07/31/18 16:20 Metamyelocytes # 0.0 K/mm3 07/31/18 16:20 Myelocytes # 0.0 K/mm3 07/31/18 16:20 Promyelocytes # 0.0 K/mm3 07/31/18 16:20 Blast Cells # 0.0 K/mm3 07/31/18 16:20 WBC Morphology Not Reportable 07/31/18 16:20 Hypersegmented Neuts Not Reportable 07/31/18 16:20 Hyposegmented Neuts Not Reportable 07/31/18 16:20 Hypogranular Neuts Not Reportable 07/31/18 16:20 Smudge Cells Not Reportable 07/31/18 16:20 Toxic Granulation Not Reportable 07/31/18 16:20 Toxic Vacuolation Not Reportable 07/31/18 16:20 Dohle Bodies Not Reportable 07/31/18 16:20 Pelger-Huet Anomaly Not Reportable 07/31/18 16:20 Laura Rods Not Reportable 07/31/18 16:20 Platelet Estimate Consistent w auto 07/31/18 16:20 Clumped Platelets Not Reportable 07/31/18 16:20 Plt Clumps, EDTA Not Reportable 07/31/18 16:20 Large Platelets Not Reportable 07/31/18 16:20 Giant Platelets Not Reportable 07/31/18 16:20 Platelet Satelliting Not Reportable 07/31/18 16:20 Plt Morphology Comment Not Reportable 07/31/18 16:20 RBC Morphology Not Reportable 07/31/18 16:20 Dimorphic RBCs Not Reportable 07/31/18 16:20 Polychromasia Few 07/31/18 16:20 Hypochromasia Not Reportable 07/31/18 16:20 Poikilocytosis 1+ 07/31/18 16:20 Anisocytosis 1+ 07/31/18 16:20 Microcytosis 1+ 07/31/18 16:20 Macrocytosis Not Reportable 07/31/18 16:20 Spherocytes Not Reportable 07/31/18 16:20 Pappenheimer Bodies Not Reportable 07/31/18 16:20 Sickle Cells Not Reportable 07/31/18 16:20 Target Cells Few 07/31/18 16:20 Tear Drop Cells Not Reportable 07/31/18 16:20 Ovalocytes Few 07/31/18 16:20 Helmet Cells Not Reportable 07/31/18 16:20 Connor-[place]uth[place] Bodies Not Reportable 07/31/18 16:20 [place] Rings Not Reportable 07/31/18 16:20 [place] Cells Not Reportable 07/31/18 16:20 Bite Cells Not Reportable 07/31/18 16:20 Crenated Cell Not Reportable 07/31/18 16:20 Elliptocytes Not Reportable 07/31/18 16:20 Acanthocytes (Spur) Not Reportable 07/31/18 16:20 Rouleaux Not Reportable 07/31/18 16:20 Hemoglobin C Crystals Not Reportable 07/31/18 16:20 Schistocytes Not Reportable 07/31/18 16:20 Malaria parasites Not Reportable 07/31/18 16:20 Augie Bodies Not Reportable 07/31/18 16:20 Hem Pathologist Commnt No 07/31/18 16:20 PT 14.6 Sec. (12.2-14.9) 07/31/18 14:44 INR 1.10 (0.87-1.13) 07/31/18 14:44 Sodium 138 mmol/L (137-145) 08/01/18 07:40 Potassium 4.7 mmol/L (3.6-5.0) 08/01/18 07:40 Chloride 101.6 mmol/L (98-107) 08/01/18 07:40 Carbon Dioxide 24 mmol/L (22-30) 08/01/18 07:40 Anion Gap 17 mmol/L 08/01/18 07:40 BUN 13 mg/dL (7-17) 08/01/18 07:40 Creatinine 0.5 mg/dL (0.7-1.2) L 08/01/18 07:40 Estimated GFR > 60 ml/min 08/01/18 07:40 BUN/Creatinine Ratio 26 % 08/01/18 07:40 Glucose 137 mg/dL (65-100) H 08/01/18 07:40 Hemoglobin A1c 6.7 % (4-6) H 07/31/18 Unknown Calcium 8.7 mg/dL (8.4-10.2) 08/01/18 07:40 Total Bilirubin 0.60 mg/dL (0.1-1.2) 08/01/18 07:40 AST 29 units/L (5-40) 08/01/18 07:40 ALT 37 units/L (7-56) 08/01/18 07:40 Alkaline Phosphatase 67 units/L (35-129) 08/01/18 07:40 Total Creatine Kinase 1119 units/L (30-135) H 07/31/18 14:44 CK-MB (CK-2) 11.8 ng/mL (0.0-4.0) H 07/31/18 14:44 CK-MB (CK-2) Rel Index 1.0 (0-4) 07/31/18 14:44 Troponin T 0.049 ng/mL (0.00-0.029) H D 07/31/18 20:16 NT-Pro-B Natriuret Pep 17397 pg/mL (0-450) H 07/31/18 14:44 Total Protein 7.4 g/dL (6.3-8.2) 08/01/18 07:40 Albumin 3.6 g/dL (3.9-5) L 08/01/18 07:40 Albumin/Globulin Ratio 0.9 % 08/01/18 07:40 Triglycerides 90 mg/dL (2-149) 07/31/18 14:44 Cholesterol 151 mg/dL (50-199) 07/31/18 14:44 LDL Cholesterol Direct 77 mg/dL (50-130) 07/31/18 14:44 HDL Cholesterol 67 mg/dL (40-59) H 07/31/18 14:44 Cholesterol/HDL Ratio 2.25 % 07/31/18 14:44
[2018-08-02] MEDS: DUONEB *Not for PRN Use IH SCH ×4 (09:39→21:38)
[2018-08-02] MEDS: PEPCID IV SCH ×2 (13:34→22:07)
[2018-08-02] MEDS: ROCEPHIN/NS 2 GM/100 ML 2 GM/100 ML BAG IV SCH (13:34)
[2018-08-02] MEDS: SODIUM CHLORIDE FLUSH SYRINGE 10 ML IV SCH ×2 (13:35→22:07)
--- NOTE | 2018-08-02 14:34 | Progress Note ---
Assessment and Plan Pt clinically improving, still with mild wheezing and unable to lie flat. Cont IV diuretics. Will not initiate BB at this time in setting of asthma exacerbation. Consider lexiscan MPI stress test to r/o ischemic CMP once medically stabilized - this can be done as OP. The patient has been seen in conjunction with Dr. De Guzman who agrees with the assessment and plan of care. - Patient Problems (1) Acute HFrEF (heart failure with reduced ejection fraction) Current Visit: Yes Status: Acute (2) Cardiomyopathy Current Visit: Yes Status: Chronic (3) Pneumonia Current Visit: Yes Status: Acute (4) Asthma exacerbation Current Visit: Yes Status: Acute (5) Thrombocytopenia Current Visit: Yes Status: Chronic (6) GERD (gastroesophageal reflux disease) Current Visit: Yes Status: Chronic Qualifiers: Esophagitis presence: without esophagitis Qualified Code(s): K21.9 - Gastro-esophageal reflux disease without esophagitis (7) Obesity Current Visit: Yes Status: Chronic Subjective Date of service: 08/02/18 Principal diagnosis: HF Interval history: pt sitting up at bedside, states SOB improving. in ST HR 110 on telemetry. Objective Last Vital Signs Temp 98.5 F 08/02/18 04:18 Pulse 68 08/02/18 13:17 Resp 20 08/02/18 13:17 BP 118/84 08/02/18 04:18 Pulse Ox 95 08/02/18 10:00 - Physical Examination HEENT: Positive: PERRL, Normocephaly, Mucus Membranes Moist Neck: Positive: neck supple, trachea midline Cardiac: Positive: Regular Rhythm Lungs: Positive: Normal Exam, Decreased Breath Sounds, Wheezes, Rhonchi Neuro: Positive: Grossly Intact Abdomen: Positive: Soft. Negative: Tender Skin: Negative: Rash, Wound Musculoskeletal: No Pain Extremities: Absent: edema - Imaging and Cardiology EKG: report reviewed, image reviewed Echo: report reviewed ( EF 35-40%, RV mild to mod dilated, RA mildly dilated, mod pulm HTN, increased RA pressure. ) - Telemetry EKG Rhythm: Sinus Tachycardia - EKG Sinus rhythms and dysrhythmias: sinus tachycardia Repolarization changes or abnormalities: nonspecific abnormality, ST segment, and/or T wave
[2018-08-02] MEDS: ZITHROMAX 500 MG in NACL 0.9% 250ML 250 ML IV SCH (22:06)
[2018-08-03] MEDS ORDERED: ROBITUSSIN PO PRN (02:08)
[2018-08-03] MEDS: SOLU-Medrol IV SCH ×3 (02:43→16:50)
[2018-08-03] MEDS: LASIX IV SCH ×2 (06:43→22:22)
[2018-08-03] MEDS: DUONEB *Not for PRN Use IH SCH ×4 (09:09→20:21)
[2018-08-03] MEDS: ROCEPHIN/NS 2 GM/100 ML 2 GM/100 ML BAG IV SCH (10:00)
[2018-08-03] MEDS: PEPCID IV SCH ×2 (10:02→22:22)
[2018-08-03] MEDS: SODIUM CHLORIDE FLUSH SYRINGE 10 ML IV SCH (10:48)
--- NOTE | 2018-08-03 14:28 | Discharge Summary ---
Providers - Providers Date of Admission: 07/31/18 17:46 Date of discharge: 08/03/18 Attending physician: EDWIN WATSON 07/31/18 16:18 Consult to Physician [CONS] Urgent Comment: Consulting Provider: CLEVE TENORIO Physician Instructions: Reason For Exam: sob, infiltrates, elevated bnp 08/02/18 14:09 Consult to Dietitian/Nutrition [CONS] Routine Physician Instructions: Reason For Exam: Reason for Consult: Diet education Primary care physician: LOGGING ENGINEER Hospitalization Condition: Fair Disposition: DC-01 TO HOME OR SELFCARE Core Measure Documentation - Palliative Care Palliative Care/ Comfort Measures: Not Applicable - Core Measures Any of the following diagnoses?: none Exam - Constitutional Vitals: Temp Pulse Resp BP Pulse Ox 98.3 F 76 20 142/91 92 08/03/18 09:35 08/03/18 14:01 08/03/18 14:01 08/03/18 12:04 08/03/18 13:04 Plan Activity: advance as tolerated Diet: low fat, low cholesterol, low salt, diabetic Additional Instructions: 1.Follow up with PCP or [facility] [place] in 1 week. 2.Follow up with Dr. Tenorio in 1 week Follow up with: PRIMARY CARE, [Primary Care Provider] - 7 Days Prescriptions: Azithromycin [Zithromax TAB] 500 mg PO QDAY #3 tablet Carvedilol [Coreg] 3.125 mg PO BID #60 tablet cefUROXime [Ceftin] 500 mg PO Q12H 3 Days tablet Furosemide [Lasix TAB] 40 mg PO QDAY #30 tablet Lisinopril 20 mg PO DAILY #30 tablet
[2018-08-03] MEDS: ZESTRIL PO SCH (16:03)
--- NOTE | 2018-08-03 18:56 | Progress Note ---
Assessment and Plan Respiratory Failure/hypoxic Asthma/COPD exacerbation/PNA Acute HFrEF EF 35-40%/Cardiomyopathy IV diuretics consider inpatient MPI once clinically stable Continue Zestril 20 QDAY Thrombocytopenia Morbid Obesity GERD Subjective Date of service: 08/03/18 Principal diagnosis: HF/COPD Interval history: Patient is sitting up in bed appears to be mildly short of breath. Respiratory therapist walked with the patient's her pulse ox dropped into the 60s and 70s while walking down the sahu. The patient is using nasal cannula oxygen. Objective Vital Signs Temp Pulse Pulse Pulse Resp Resp Resp 08/03/18 14:01 76 20 08/03/18 13:53 109 H 20 08/03/18 13:04 08/03/18 12:04 77 08/03/18 09:35 98.3 F 18 08/03/18 09:20 66 20 08/03/18 09:09 67 18 08/03/18 08:54 98 H 20 08/03/18 05:20 82 08/03/18 05:09 96 H 08/03/18 04:06 98.0 F 108 H 20 08/02/18 23:42 104 H 08/02/18 23:39 98.3 F 20 08/02/18 22:56 22 08/02/18 22:54 22 08/02/18 21:52 61 13 08/02/18 21:47 08/02/18 21:38 65 15 08/02/18 20:21 08/02/18 20:20 102 H 22 08/02/18 20:19 98.1 F 100 H 22 08/02/18 19:37 109 H BP Pulse Ox 08/03/18 14:01 08/03/18 13:53 08/03/18 13:04 92 08/03/18 12:04 142/91 93 08/03/18 09:35 150/85 08/03/18 09:20 08/03/18 09:09 08/03/18 08:54 99 08/03/18 05:20 95 08/03/18 05:09 93 08/03/18 04:06 135/87 68 L 08/02/18 23:42 93 08/02/18 23:39 135/82 08/02/18 22:56 08/02/18 22:54 96 08/02/18 21:52 08/02/18 21:47 99 08/02/18 21:38 08/02/18 20:21 98 08/02/18 20:20 99 08/02/18 20:19 135/92 80 L 08/02/18 19:37 - Physical Examination General: No Apparent Distress HEENT: Positive: PERRL, Normocephaly, Mucus Membranes Moist Neck: Positive: neck supple, trachea midline Cardiac: Positive: Reg Rate and Rhythm Lungs: Positive: Decreased Breath Sounds Neuro: Positive: Grossly Intact Abdomen: Positive: Soft. Negative: Tender Skin: Negative: Rash, Wound Musculoskeletal: No Pain Extremities: Absent: edema - Imaging and Cardiology EKG: report reviewed, image reviewed Echo: report reviewed ( EF 35-40%, RV mild to mod dilated, RA mildly dilated, mod pulm HTN, increased RA pressure. ) - EKG Sinus rhythms and dysrhythmias: sinus tachycardia Repolarization changes or abnormalities: nonspecific abnormality, ST segment, and/or T wave
[2018-08-04] MEDS: SOLU-Medrol IV SCH ×3 (01:31→18:50)
[2018-08-04] MEDS: ZITHROMAX 500 MG in NACL 0.9% 250ML 250 ML IV SCH (01:32)
[2018-08-04] MEDS: PEPCID IV SCH (01:32)
[2018-08-04] MEDS: SODIUM CHLORIDE FLUSH SYRINGE 10 ML IV SCH ×3 (01:41→22:23)
--- NOTE | 2018-08-04 02:00 | Progress Note ---
Assessment and Plan Assessment and plan: Acute systolic CHF EF 30-35% Lasix iv cardiology following Acute resp failure with hypoxia. Patient desaturated oxygen sats 66% on ambulation, therefore canceled intended discharge. Consider consulting solution consultant since shortness of breath is probably not all cardiac Asthma solu-medrol Hyperkalemia Now resolved Obesity. I counseled her on diet and exercise Pneumonia as per CXR Continue iv Abx Full code status Thrombocytopenia History Interval history: Patient desaturated on ambuklation therefore not discharged Shortness of breath Hospitalist Physical - Physical exam Narrative exam: GEN: Not in acute distress, obese HEENT: Normocephalic, atraumatic, Neck: supple, No JVD Lungs: Bilateral crackles, no wheeze Heart:S1 and S2 regular, no murmurs, rubs or gallop, Abd:soft, non tender, non distended, normal bowel sounds Ext: No edema, no clubbing or cyanosis Neuro: AAO x 3, No focal signs - Constitutional Vitals: Temp Pulse Resp BP Pulse Ox 98.0 F 100 H 20 146/89 82 L 08/04/18 00:26 08/04/18 00:26 08/04/18 01:48 08/04/18 00:26 08/04/18 00:26 General appearance: Present: no acute distress Results - Labs CBC & Chem 7: 08/01/18 07:40 08/01/18 07:40 Labs: Laboratory Last Values WBC 6.2 K/mm3 (4.5-11.0) 08/01/18 07:40 RBC 4.71 M/mm3 (3.65-5.03) 08/01/18 07:40 Hgb 11.0 gm/dl (10.1-14.3) 08/01/18 07:40 Hct 35.3 % (30.3-42.9) 08/01/18 07:40 MCV 75 fl (79-97) L 08/01/18 07:40 MCH 23 pg (28-32) L 08/01/18 07:40 MCHC 31 % (30-34) 08/01/18 07:40 RDW 15.9 % (13.2-15.2) H 08/01/18 07:40 Plt Count 113 K/mm3 (140-440) L 08/01/18 07:40 Lymph % (Auto) 15.2 % (13.4-35.0) 08/01/18 07:40 [place] % (Auto) 10.6 % (0.0-7.3) H 08/01/18 07:40 Eos % (Auto) 0.0 % (0.0-4.3) 08/01/18 07:40 Baso % (Auto) 0.2 % (0.0-1.8) 08/01/18 07:40 Lymph # 0.9 K/mm3 (1.2-5.4) L 08/01/18 07:40 [place] # 0.7 K/mm3 (0.0-0.8) 08/01/18 07:40 Eos # 0.0 K/mm3 (0.0-0.4) 08/01/18 07:40 Baso # 0.0 K/mm3 (0.0-0.1) 08/01/18 07:40 Add Manual Diff Complete 07/31/18 16:20 Total Counted 100 07/31/18 16:20 Seg Neutrophils % 74.0 % (40.0-70.0) H 08/01/18 07:40 Seg Neuts % (Manual) 99.0 % (40.0-70.0) H 07/31/18 16:20 Band Neutrophils % 0 % 07/31/18 16:20 Lymphocytes % (Manual) 1.0 % (13.4-35.0) L 07/31/18 16:20 Reactive Lymphs % (Man) 0 % 07/31/18 16:20 Monocytes % (Manual) 0 % (0.0-7.3) 07/31/18 16:20 Eosinophils % (Manual) 0 % (0.0-4.3) 07/31/18 16:20 Basophils % (Manual) 0 % (0.0-1.8) 07/31/18 16:20 Metamyelocytes % 0 % 07/31/18 16:20 Myelocytes % 0 % 07/31/18 16:20 Promyelocytes % 0 % 07/31/18 16:20 Blast Cells % 0 % 07/31/18 16:20 Nucleated RBC % Not Reportable 07/31/18 16:20 Seg Neutrophils # 4.6 K/mm3 (1.8-7.7) 08/01/18 07:40 Seg Neutrophils # Man 12.3 K/mm3 (1.8-7.7) H 07/31/18 16:20 Band Neutrophils # 0.0 K/mm3 07/31/18 16:20 Lymphocytes # (Manual) 0.1 K/mm3 (1.2-5.4) L 07/31/18 16:20 Abs React Lymphs (Man) 0.0 K/mm3 07/31/18 16:20 Monocytes # (Manual) 0.0 K/mm3 (0.0-0.8) 07/31/18 16:20 Eosinophils # (Manual) 0.0 K/mm3 (0.0-0.4) 07/31/18 16:20 Basophils # (Manual) 0.0 K/mm3 (0.0-0.1) 07/31/18 16:20 Metamyelocytes # 0.0 K/mm3 07/31/18 16:20 Myelocytes # 0.0 K/mm3 07/31/18 16:20 Promyelocytes # 0.0 K/mm3 07/31/18 16:20 Blast Cells # 0.0 K/mm3 07/31/18 16:20 WBC Morphology Not Reportable 07/31/18 16:20 Hypersegmented Neuts Not Reportable 07/31/18 16:20 Hyposegmented Neuts Not Reportable 07/31/18 16:20 Hypogranular Neuts Not Reportable 07/31/18 16:20 Smudge Cells Not Reportable 07/31/18 16:20 Toxic Granulation Not Reportable 07/31/18 16:20 Toxic Vacuolation Not Reportable 07/31/18 16:20 Dohle Bodies Not Reportable 07/31/18 16:20 Pelger-Huet Anomaly Not Reportable 07/31/18 16:20 Laura Rods Not Reportable 07/31/18 16:20 Platelet Estimate Consistent w auto 07/31/18 16:20 Clumped Platelets Not Reportable 07/31/18 16:20 Plt Clumps, EDTA Not Reportable 07/31/18 16:20 Large Platelets Not Reportable 07/31/18 16:20 Giant Platelets Not Reportable 07/31/18 16:20 Platelet Satelliting Not Reportable 07/31/18 16:20 Plt Morphology Comment Not Reportable 07/31/18 16:20 RBC Morphology Not Reportable 07/31/18 16:20 Dimorphic RBCs Not Reportable 07/31/18 16:20 Polychromasia Few 07/31/18 16:20 Hypochromasia Not Reportable 07/31/18 16:20 Poikilocytosis 1+ 07/31/18 16:20 Anisocytosis 1+ 07/31/18 16:20 Microcytosis 1+ 07/31/18 16:20 Macrocytosis Not Reportable 07/31/18 16:20 Spherocytes Not Reportable 07/31/18 16:20 Pappenheimer Bodies Not Reportable 07/31/18 16:20 Sickle Cells Not Reportable 07/31/18 16:20 Target Cells Few 07/31/18 16:20 Tear Drop Cells Not Reportable 07/31/18 16:20 Ovalocytes Few 07/31/18 16:20 Helmet Cells Not Reportable 07/31/18 16:20 [place] Bodies Not Reportable 07/31/18 16:20 [place] Rings Not Reportable 07/31/18 16:20 [place] Cells Not Reportable 07/31/18 16:20 Bite Cells Not Reportable 07/31/18 16:20 Crenated Cell Not Reportable 07/31/18 16:20 Elliptocytes Not Reportable 07/31/18 16:20 Acanthocytes (Spur) Not Reportable 07/31/18 16:20 Rouleaux Not Reportable 07/31/18 16:20 Hemoglobin C Crystals Not Reportable 07/31/18 16:20 Schistocytes Not Reportable 07/31/18 16:20 Malaria parasites Not Reportable 07/31/18 16:20 Augie Bodies Not Reportable 07/31/18 16:20 Hem Pathologist Commnt No 07/31/18 16:20 PT 14.6 Sec. (12.2-14.9) 07/31/18 14:44 INR 1.10 (0.87-1.13) 07/31/18 14:44 Sodium 138 mmol/L (137-145) 08/01/18 07:40 Potassium 4.7 mmol/L (3.6-5.0) 08/01/18 07:40 Chloride 101.6 mmol/L (98-107) 08/01/18 07:40 Carbon Dioxide 24 mmol/L (22-30) 08/01/18 07:40 Anion Gap 17 mmol/L 08/01/18 07:40 BUN 13 mg/dL (7-17) 08/01/18 07:40 Creatinine 0.5 mg/dL (0.7-1.2) L 08/01/18 07:40 Estimated GFR > 60 ml/min 08/01/18 07:40 BUN/Creatinine Ratio 26 % 08/01/18 07:40 Glucose 137 mg/dL (65-100) H 08/01/18 07:40 Hemoglobin A1c 6.7 % (4-6) H 07/31/18 Unknown Calcium 8.7 mg/dL (8.4-10.2) 08/01/18 07:40 Total Bilirubin 0.60 mg/dL (0.1-1.2) 08/01/18 07:40 AST 29 units/L (5-40) 08/01/18 07:40 ALT 37 units/L (7-56) 08/01/18 07:40 Alkaline Phosphatase 67 units/L (35-129) 08/01/18 07:40 Total Creatine Kinase 1119 units/L (30-135) H 07/31/18 14:44 CK-MB (CK-2) 11.8 ng/mL (0.0-4.0) H 07/31/18 14:44 CK-MB (CK-2) Rel Index 1.0 (0-4) 07/31/18 14:44 Troponin T 0.049 ng/mL (0.00-0.029) H D 07/31/18 20:16 NT-Pro-B Natriuret Pep 54152 pg/mL (0-450) H 07/31/18 14:44 Total Protein 7.4 g/dL (6.3-8.2) 08/01/18 07:40 Albumin 3.6 g/dL (3.9-5) L 08/01/18 07:40 Albumin/Globulin Ratio 0.9 % 08/01/18 07:40 Triglycerides 90 mg/dL (2-149) 07/31/18 14:44 Cholesterol 151 mg/dL (50-199) 07/31/18 14:44 LDL Cholesterol Direct 77 mg/dL (50-130) 07/31/18 14:44 HDL Cholesterol 67 mg/dL (40-59) H 07/31/18 14:44 Cholesterol/HDL Ratio 2.25 % 07/31/18 14:44 Nutrition/Malnutrition Assess - Dietary Evaluation Nutrition/Malnutrition Findings: Nutrition Notes Start: 08/03/18 12:34 Freq: Status: Active Protocol: Document 08/03/18 12:34 LP (Rec: 08/03/18 12:37 LP [id number]) Nutrition Notes Need for Assessment generated from: Education Initial or Follow up Brief Note Current Diagnoses COPD Heart Failure Labs/Tests A1c 6.7 Subjective/Other Information Consult for diet education. Pt states not being aware of acute heart failure and wanting to lose wt. Gave pt information on the free DM class here. #1 Nutrition Diagnoses Food and nutrition-related knowledge deficit Etiology heart failure and consistent CHO As Evidenced by Signs and Symptoms A1c 6.7 Pro BNP 15,817 Nutrition Intervention Teaching Recipient Patient Learning Readiness Good Teaching Methods Discussion Handout Response to Teaching Verbalize understanding Education Handouts Provided Consistent CHO and heart failure Barriers to Learning No Barriers RD phone number provided Yes Patient aware of follow up options Yes Revisit per MD consult or patient Sign Off request:
[2018-08-04] MEDS: LASIX IV SCH ×2 (06:17→18:50)
[2018-08-04] MEDS: DUONEB *Not for PRN Use IH SCH ×4 (08:04→20:32)
[2018-08-04] MEDS: ZESTRIL PO SCH (12:07)
[2018-08-04] MEDS: PEPCID PO SCH ×2 (12:09→22:23)
[2018-08-04] MEDS: ROCEPHIN/NS 2 GM/100 ML 2 GM/100 ML BAG IV SCH (12:09)
--- NOTE | 2018-08-04 13:42 | Progress Note ---
Assessment and Plan Respiratory Failure/hypoxic Asthma/COPD exacerbation/PNA Acute HFrEF EF 35-40%/Cardiomyopathy change to PO diuretics consider MPI once clinically stable Currently no beta arie concern for increased bronchospasm Continue Zestril 20 QDAY Thrombocytopenia Morbid Obesity GERD Subjective Date of service: 08/04/18 Principal diagnosis: HF/COPD Interval history: Patient is sitting up today feels mildly better. Objective Vital Signs Temp Pulse Pulse Resp Resp Resp BP 08/04/18 12:52 98.0 F 90 20 08/04/18 11:55 80 18 08/04/18 11:48 86 16 08/04/18 11:15 121/80 08/04/18 10:00 08/04/18 09:42 22 08/04/18 08:33 98.0 F 77 20 129/96 08/04/18 08:12 84 18 08/04/18 08:05 86 18 08/04/18 03:48 97.0 F L 76 18 126/86 08/04/18 01:48 20 08/04/18 00:26 98.0 F 100 H 20 146/89 08/03/18 20:50 81 18 08/03/18 20:21 76 17 08/03/18 19:50 91 H 22 08/03/18 19:27 97.0 F L 91 H 20 137/91 08/03/18 16:30 22 08/03/18 14:01 76 20 08/03/18 13:53 109 H 20 BP Pulse Ox 08/04/18 12:52 121/82 95 08/04/18 11:55 08/04/18 11:48 08/04/18 11:15 08/04/18 10:00 98 08/04/18 09:42 08/04/18 08:33 95 08/04/18 08:12 08/04/18 08:05 08/04/18 03:48 90 08/04/18 01:48 08/04/18 00:26 82 L 08/03/18 20:50 08/03/18 20:21 98 08/03/18 19:50 08/03/18 19:27 93 08/03/18 16:30 08/03/18 14:01 08/03/18 13:53 - Physical Examination General: No Apparent Distress HEENT: Positive: PERRL, Normocephaly, Mucus Membranes Moist Neck: Positive: neck supple, trachea midline Cardiac: Positive: Reg Rate and Rhythm Lungs: Positive: clear to auscultation, Normal Breath Sounds Neuro: Positive: Grossly Intact Abdomen: Positive: Soft. Negative: Tender Skin: Negative: Rash, Wound Musculoskeletal: No Pain Extremities: Absent: edema - Imaging and Cardiology EKG: report reviewed, image reviewed Echo: report reviewed ( EF 35-40%, RV mild to mod dilated, RA mildly dilated, mod pulm HTN, increased RA pressure. ) - EKG Sinus rhythms and dysrhythmias: sinus tachycardia Repolarization changes or abnormalities: nonspecific abnormality, ST segment, and/or T wave
--- NOTE | 2018-08-04 14:04 | Progress Note ---
Assessment and Plan Assessment and plan: Acute systolic CHF EF 30-35% Lasix iv cardiology following Acute resp failure with hypoxia. Patient desaturated oxygen sats 66% on ambulation, therefore canceled intended discharge. Will consult Production Team Leader since shortness of breath is probably not all cardiac Get ABG, CT Angio chest since d-dimer high Asthma solu-medrol Hyperkalemia Now resolved Obesity. I counseled her on diet and exercise Pneumonia as per CXR Continue iv Abx Full code status Thrombocytopenia DVT prophylaxis - SCDs only because low platelets. History Interval history: Patient desaturated on ambuklation therefore not discharged Shortness of breath Hospitalist Physical - Physical exam Narrative exam: GEN: Not in acute distress, obese HEENT: Normocephalic, atraumatic, Neck: supple, No JVD Lungs: Bilateral crackles, no wheeze Heart:S1 and S2 regular, no murmurs, rubs or gallop, Abd:soft, non tender, non distended, normal bowel sounds Ext: No edema, no clubbing or cyanosis Neuro: AAO x 3, No focal signs - Constitutional Vitals: Temp Pulse Resp BP Pulse Ox 98.0 F 90 20 121/82 95 08/04/18 12:52 08/04/18 12:52 08/04/18 12:52 08/04/18 12:52 08/04/18 12:52 General appearance: Present: no acute distress Results - Labs CBC & Chem 7: 08/01/18 07:40 08/01/18 07:40 Labs: Laboratory Last Values WBC 6.2 K/mm3 (4.5-11.0) 08/01/18 07:40 RBC 4.71 M/mm3 (3.65-5.03) 08/01/18 07:40 Hgb 11.0 gm/dl (10.1-14.3) 08/01/18 07:40 Hct 35.3 % (30.3-42.9) 08/01/18 07:40 MCV 75 fl (79-97) L 08/01/18 07:40 MCH 23 pg (28-32) L 08/01/18 07:40 MCHC 31 % (30-34) 08/01/18 07:40 RDW 15.9 % (13.2-15.2) H 08/01/18 07:40 Plt Count 113 K/mm3 (140-440) L 08/01/18 07:40 Lymph % (Auto) 15.2 % (13.4-35.0) 08/01/18 07:40 [place] % (Auto) 10.6 % (0.0-7.3) H 08/01/18 07:40 Eos % (Auto) 0.0 % (0.0-4.3) 08/01/18 07:40 Baso % (Auto) 0.2 % (0.0-1.8) 08/01/18 07:40 Lymph # 0.9 K/mm3 (1.2-5.4) L 08/01/18 07:40 [place] # 0.7 K/mm3 (0.0-0.8) 08/01/18 07:40 Eos # 0.0 K/mm3 (0.0-0.4) 08/01/18 07:40 Baso # 0.0 K/mm3 (0.0-0.1) 08/01/18 07:40 Add Manual Diff Complete 07/31/18 16:20 Total Counted 100 07/31/18 16:20 Seg Neutrophils % 74.0 % (40.0-70.0) H 08/01/18 07:40 Seg Neuts % (Manual) 99.0 % (40.0-70.0) H 07/31/18 16:20 Band Neutrophils % 0 % 07/31/18 16:20 Lymphocytes % (Manual) 1.0 % (13.4-35.0) L 07/31/18 16:20 Reactive Lymphs % (Man) 0 % 07/31/18 16:20 Monocytes % (Manual) 0 % (0.0-7.3) 07/31/18 16:20 Eosinophils % (Manual) 0 % (0.0-4.3) 07/31/18 16:20 Basophils % (Manual) 0 % (0.0-1.8) 07/31/18 16:20 Metamyelocytes % 0 % 07/31/18 16:20 Myelocytes % 0 % 07/31/18 16:20 Promyelocytes % 0 % 07/31/18 16:20 Blast Cells % 0 % 07/31/18 16:20 Nucleated RBC % Not Reportable 07/31/18 16:20 Seg Neutrophils # 4.6 K/mm3 (1.8-7.7) 08/01/18 07:40 Seg Neutrophils # Man 12.3 K/mm3 (1.8-7.7) H 07/31/18 16:20 Band Neutrophils # 0.0 K/mm3 07/31/18 16:20 Lymphocytes # (Manual) 0.1 K/mm3 (1.2-5.4) L 07/31/18 16:20 Abs React Lymphs (Man) 0.0 K/mm3 07/31/18 16:20 Monocytes # (Manual) 0.0 K/mm3 (0.0-0.8) 07/31/18 16:20 Eosinophils # (Manual) 0.0 K/mm3 (0.0-0.4) 07/31/18 16:20 Basophils # (Manual) 0.0 K/mm3 (0.0-0.1) 07/31/18 16:20 Metamyelocytes # 0.0 K/mm3 07/31/18 16:20 Myelocytes # 0.0 K/mm3 07/31/18 16:20 Promyelocytes # 0.0 K/mm3 07/31/18 16:20 Blast Cells # 0.0 K/mm3 07/31/18 16:20 WBC Morphology Not Reportable 07/31/18 16:20 Hypersegmented Neuts Not Reportable 07/31/18 16:20 Hyposegmented Neuts Not Reportable 07/31/18 16:20 Hypogranular Neuts Not Reportable 07/31/18 16:20 Smudge Cells Not Reportable 07/31/18 16:20 Toxic Granulation Not Reportable 07/31/18 16:20 Toxic Vacuolation Not Reportable 07/31/18 16:20 Dohle Bodies Not Reportable 07/31/18 16:20 Pelger-Huet Anomaly Not Reportable 07/31/18 16:20 Laura Rods Not Reportable 07/31/18 16:20 Platelet Estimate Consistent w auto 07/31/18 16:20 Clumped Platelets Not Reportable 07/31/18 16:20 Plt Clumps, EDTA Not Reportable 07/31/18 16:20 Large Platelets Not Reportable 07/31/18 16:20 Giant Platelets Not Reportable 07/31/18 16:20 Platelet Satelliting Not Reportable 07/31/18 16:20 Plt Morphology Comment Not Reportable 07/31/18 16:20 RBC Morphology Not Reportable 07/31/18 16:20 Dimorphic RBCs Not Reportable 07/31/18 16:20 Polychromasia Few 07/31/18 16:20 Hypochromasia Not Reportable 07/31/18 16:20 Poikilocytosis 1+ 07/31/18 16:20 Anisocytosis 1+ 07/31/18 16:20 Microcytosis 1+ 07/31/18 16:20 Macrocytosis Not Reportable 07/31/18 16:20 Spherocytes Not Reportable 07/31/18 16:20 Pappenheimer Bodies Not Reportable 07/31/18 16:20 Sickle Cells Not Reportable 07/31/18 16:20 Target Cells Few 07/31/18 16:20 Tear Drop Cells Not Reportable 07/31/18 16:20 Ovalocytes Few 07/31/18 16:20 Helmet Cells Not Reportable 07/31/18 16:20 [place] Bodies Not Reportable 07/31/18 16:20 [place] Rings Not Reportable 07/31/18 16:20 [place] Cells Not Reportable 07/31/18 16:20 Bite Cells Not Reportable 07/31/18 16:20 Crenated Cell Not Reportable 07/31/18 16:20 Elliptocytes Not Reportable 07/31/18 16:20 Acanthocytes (Spur) Not Reportable 07/31/18 16:20 Rouleaux Not Reportable 07/31/18 16:20 Hemoglobin C Crystals Not Reportable 07/31/18 16:20 Schistocytes Not Reportable 07/31/18 16:20 Malaria parasites Not Reportable 07/31/18 16:20 Augie Bodies Not Reportable 07/31/18 16:20 Hem Pathologist Commnt No 07/31/18 16:20 PT 14.6 Sec. (12.2-14.9) 07/31/18 14:44 INR 1.10 (0.87-1.13) 07/31/18 14:44 D-Dimer 507.46 ng/mlDDU (0-234) H 08/04/18 10:00 Sodium 138 mmol/L (137-145) 08/01/18 07:40 Potassium 4.7 mmol/L (3.6-5.0) 08/01/18 07:40 Chloride 101.6 mmol/L (98-107) 08/01/18 07:40 Carbon Dioxide 24 mmol/L (22-30) 08/01/18 07:40 Anion Gap 17 mmol/L 08/01/18 07:40 BUN 13 mg/dL (7-17) 08/01/18 07:40 Creatinine 0.5 mg/dL (0.7-1.2) L 08/01/18 07:40 Estimated GFR > 60 ml/min 08/01/18 07:40 BUN/Creatinine Ratio 26 % 08/01/18 07:40 Glucose 137 mg/dL (65-100) H 08/01/18 07:40 Hemoglobin A1c 6.7 % (4-6) H 07/31/18 Unknown Calcium 8.7 mg/dL (8.4-10.2) 08/01/18 07:40 Total Bilirubin 0.60 mg/dL (0.1-1.2) 08/01/18 07:40 AST 29 units/L (5-40) 08/01/18 07:40 ALT 37 units/L (7-56) 08/01/18 07:40 Alkaline Phosphatase 67 units/L (35-129) 08/01/18 07:40 Total Creatine Kinase 1119 units/L (30-135) H 07/31/18 14:44 CK-MB (CK-2) 11.8 ng/mL (0.0-4.0) H 07/31/18 14:44 CK-MB (CK-2) Rel Index 1.0 (0-4) 07/31/18 14:44 Troponin T 0.049 ng/mL (0.00-0.029) H D 07/31/18 20:16 NT-Pro-B Natriuret Pep 72427 pg/mL (0-450) H 07/31/18 14:44 Total Protein 7.4 g/dL (6.3-8.2) 08/01/18 07:40 Albumin 3.6 g/dL (3.9-5) L 08/01/18 07:40 Albumin/Globulin Ratio 0.9 % 08/01/18 07:40 Triglycerides 90 mg/dL (2-149) 07/31/18 14:44 Cholesterol 151 mg/dL (50-199) 07/31/18 14:44 LDL Cholesterol Direct 77 mg/dL (50-130) 07/31/18 14:44 HDL Cholesterol 67 mg/dL (40-59) H 07/31/18 14:44 Cholesterol/HDL Ratio 2.25 % 07/31/18 14:44 Nutrition/Malnutrition Assess - Dietary Evaluation Nutrition/Malnutrition Findings: Nutrition Notes Start: 08/03/18 12:34 Freq: Status: Active Protocol: Document 08/03/18 12:34 LP (Rec: 08/03/18 12:37 LP [id number]) Nutrition Notes Need for Assessment generated from: Education Initial or Follow up Brief Note Current Diagnoses COPD Heart Failure Labs/Tests A1c 6.7 Subjective/Other Information Consult for diet education. Pt states not being aware of acute heart failure and wanting to lose wt. Gave pt information on the free DM class here. #1 Nutrition Diagnoses Food and nutrition-related knowledge deficit Etiology heart failure and consistent CHO As Evidenced by Signs and Symptoms A1c 6.7 Pro BNP 15,817 Nutrition Intervention Teaching Recipient Patient Learning Readiness Good Teaching Methods Discussion Handout Response to Teaching Verbalize understanding Education Handouts Provided Consistent CHO and heart failure Barriers to Learning No Barriers RD phone number provided Yes Patient aware of follow up options Yes Revisit per MD consult or patient Sign Off request:
[2018-08-04] MEDS: ZITHROMAX PO SCH (22:23)
[2018-08-05] MEDS: SOLU-Medrol IV SCH ×3 (00:05→17:55)
[2018-08-05] MEDS: LASIX IV SCH ×2 (06:05→17:50)
[2018-08-05 08:11] LABS: Mean Corpuscular HGB Conc 31 % (30-34); Mean Corpuscular Volume 75 fl (79-97); Platelet Count 274 K/mm3 (140-440); Red Blood Count 5.97 M/mm3 (3.65-5.03); Red Cell Distribution Width 15.5 % (13.2-15.2)
[2018-08-05 08:24] LABS: Hematocrit 44.7 % (30.3-42.9); Hemoglobin 13.8 gm/dl (10.1-14.3)
[2018-08-05 08:29] LABS: BUN/Creatinine Ratio 43; Blood Urea Nitrogen 26 mg/dL (7-17); Calcium 9.4 mg/dL (8.4-10.2); Hemolysis Index 9
[2018-08-05] MEDS: PEPCID PO SCH ×2 (09:23→22:14)
[2018-08-05] MEDS: ROCEPHIN/NS 2 GM/100 ML 2 GM/100 ML BAG IV SCH (09:24)
[2018-08-05] MEDS: ZESTRIL PO SCH (09:24)
[2018-08-05] MEDS: DUONEB *Not for PRN Use IH SCH ×3 (09:29→19:27)
--- NOTE | 2018-08-05 11:56 | Progress Note ---
Assessment and Plan Currently stable cardiac status. Cont PO lasix and lisinopril. Currently no beta arie due to concern for increased bronchospasm. Can consider lexiscan MPI stress test to r/o ischemic CMP as OP. Pt may discharge home from cardiology standpoint. Recommend follow up in our office with Dr. De Guzman within 3-5 days of hospital discharge ([phone]). The patient has been seen in conjunction with Dr. Feldman who agrees with the assessment and plan of care. - Patient Problems (1) Acute HFrEF (heart failure with reduced ejection fraction) Current Visit: Yes Status: Acute (2) Cardiomyopathy Current Visit: Yes Status: Chronic (3) Pneumonia Current Visit: Yes Status: Acute (4) Asthma exacerbation Current Visit: Yes Status: Acute (5) Thrombocytopenia Current Visit: Yes Status: Chronic (6) GERD (gastroesophageal reflux disease) Current Visit: Yes Status: Chronic Qualifiers: Esophagitis presence: without esophagitis Qualified Code(s): K21.9 - Gastro-esophageal reflux disease without esophagitis (7) Obesity Current Visit: Yes Status: Chronic Subjective Date of service: 08/05/18 Principal diagnosis: HF/COPD Interval history: pt sitting up at bedside, no current cardiac complaints. states she feels ready to discharge home today. Objective Last Vital Signs Temp 98.2 F 08/05/18 09:51 Pulse 109 H 08/05/18 09:51 Resp 18 08/05/18 09:51 BP 131/81 08/05/18 09:51 Pulse Ox 98 08/05/18 09:51 - Physical Examination General: No Apparent Distress HEENT: Positive: PERRL, Normocephaly, Mucus Membranes Moist Neck: Positive: neck supple, trachea midline Cardiac: Positive: Reg Rate and Rhythm, S1/S2 Lungs: Positive: Decreased Breath Sounds Neuro: Positive: Grossly Intact Abdomen: Positive: Soft. Negative: Tender Skin: Negative: Rash, Wound Musculoskeletal: No Pain Extremities: Absent: edema - Labs and Meds CBC 08/05/18 Range/Units 07:00 WBC 7.4 (4.5-11.0) K/mm3 RBC 5.97 H (3.65-5.03) M/mm3 Hgb 13.8 (10.1-14.3) gm/dl Hct 44.7 H (30.3-42.9) % Plt Count 274 (140-440) K/mm3 Comprehensive Metabolic Panel 08/05/18 Range/Units 07:00 Sodium 142 (137-145) mmol/L Potassium 4.1 (3.6-5.0) mmol/L Chloride 98.0 (98-107) mmol/L Carbon Dioxide 30 (22-30) mmol/L BUN 26 H (7-17) mg/dL Creatinine 0.6 L (0.7-1.2) mg/dL Glucose 170 H (65-100) mg/dL Calcium 9.4 (8.4-10.2) mg/dL - Imaging and Cardiology EKG: report reviewed, image reviewed Echo: report reviewed ( EF 35-40%, RV mild to mod dilated, RA mildly dilated, mod pulm HTN, increased RA pressure. ) - EKG Sinus rhythms and dysrhythmias: sinus tachycardia Repolarization changes or abnormalities: nonspecific abnormality, ST segment, and/or T wave
--- NOTE | 2018-08-05 13:27 | Event Note ---
Date: 08/05/18 Attempt to see patient for consult. She is currently out on study. We'll see at the earliest opportunity, once patient several of her review.
--- NOTE | 2018-08-05 15:27 | Cat Scan Report ---
CTA CHEST: HISTORY: Shortness of breath, elevated d-dimer. COMPARISON: none. TECHNIQUE: Helical CT in 1.25mm intervals following IV contrast. Pulmonary embolus protocol. Sagittal and coronal reformatted images. Rotational MIP images. FINDINGS: Contrast bolus is satisfactory. No pulmonary embolus is identified. Thyroid gland: Normal. Tracheobronchial tree: Normal. Esophagus: Normal. Heart: Normal. Pericardium: Normal. Mediastinum: Normal. Lung Amaro: normal. Pleural Spaces: Normal. Musculoskeletal: Normal. IMPRESSION: No evidence for pulmonary embolus. Unremarkable CT chest with contrast.
--- NOTE | 2018-08-05 15:28 | Progress Note ---
Assessment and Plan Assessment and plan: Patient is 38-year-old with asthma,obesity, low platelets. She presented with shortness of breath. She was diagnosed with cute respiratory failure secondary to acute systolic CHF and pneumonia. Patient was started on Lasix IV, antibiotics and admitted. cardiology was consulted and she was evaluated. After several days patient was evaluated and found to have desaturation oxygen with O2 sat of 66% on ambulation therefore intended discharge was canceled. ABG was ordered. CT chest was negative for PE, Pulmonology consulted. Also home oxygen has been ordered to case management. Possible discharge on home Oxygen in 1-2 days after evaluation by pulmonology. A1c is 6.7. If repeat >6.5 wiill diagnose diabetes. Acute systolic CHF EF 30-35% Lasix iv cardiology following Acute resp failure with hypoxia. Patient desaturated oxygen sats 66% on ambulation, therefore canceled intended discharge. Consulted Shredder Operator since shortness of breath is probably not all cardiac CT Chest neg for PE Asthma solu-medrol Hyperkalemia Now resolved A1c 6.7, poss diabetes new onset will repeat. If>6.5 will diagnose diabetes Obesity. I counseled her on diet and exercise Pneumonia as per CXR Continue iv Abx Full code status Thrombocytopenia DVT prophylaxis - SCDs only because low platelets. History Interval history: Patient desaturated on ambulation therefore not discharged Shortness of breath Hospitalist Physical - Physical exam Narrative exam: GEN: Not in acute distress, obese HEENT: Normocephalic, atraumatic, Neck: supple, No JVD Lungs: Bilateral crackles, no wheeze Heart:S1 and S2 regular, no murmurs, rubs or gallop, Abd:soft, non tender, non distended, normal bowel sounds Ext: No edema, no clubbing or cyanosis Neuro: AAO x 3, No focal signs - Constitutional Vitals: Temp Pulse Resp BP Pulse Ox 98.2 F 102 H 16 131/81 98 08/05/18 09:51 08/05/18 15:23 08/05/18 15:23 08/05/18 09:51 08/05/18 09:51 General appearance: Present: no acute distress Results - Labs CBC & Chem 7: 08/05/18 07:00 08/05/18 07:00 Labs: Laboratory Last Values WBC 7.4 K/mm3 (4.5-11.0) 08/05/18 07:00 RBC 5.97 M/mm3 (3.65-5.03) H 08/05/18 07:00 Hgb 13.8 gm/dl (10.1-14.3) 08/05/18 07:00 Hct 44.7 % (30.3-42.9) H 08/05/18 07:00 MCV 75 fl (79-97) L 08/05/18 07:00 MCH 23 pg (28-32) L 08/05/18 07:00 MCHC 31 % (30-34) 08/05/18 07:00 RDW 15.5 % (13.2-15.2) H 08/05/18 07:00 Plt Count 274 K/mm3 (140-440) 08/05/18 07:00 Lymph % (Auto) 15.2 % (13.4-35.0) 08/01/18 07:40 [place] % (Auto) 10.6 % (0.0-7.3) H 08/01/18 07:40 Eos % (Auto) 0.0 % (0.0-4.3) 08/01/18 07:40 Baso % (Auto) 0.2 % (0.0-1.8) 08/01/18 07:40 Lymph # 0.9 K/mm3 (1.2-5.4) L 08/01/18 07:40 [place] # 0.7 K/mm3 (0.0-0.8) 08/01/18 07:40 Eos # 0.0 K/mm3 (0.0-0.4) 08/01/18 07:40 Baso # 0.0 K/mm3 (0.0-0.1) 08/01/18 07:40 Add Manual Diff Complete 07/31/18 16:20 Total Counted 100 07/31/18 16:20 Seg Neutrophils % 74.0 % (40.0-70.0) H 08/01/18 07:40 Seg Neuts % (Manual) 99.0 % (40.0-70.0) H 07/31/18 16:20 Band Neutrophils % 0 % 07/31/18 16:20 Lymphocytes % (Manual) 1.0 % (13.4-35.0) L 07/31/18 16:20 Reactive Lymphs % (Man) 0 % 07/31/18 16:20 Monocytes % (Manual) 0 % (0.0-7.3) 07/31/18 16:20 Eosinophils % (Manual) 0 % (0.0-4.3) 07/31/18 16:20 Basophils % (Manual) 0 % (0.0-1.8) 07/31/18 16:20 Metamyelocytes % 0 % 07/31/18 16:20 Myelocytes % 0 % 07/31/18 16:20 Promyelocytes % 0 % 07/31/18 16:20 Blast Cells % 0 % 07/31/18 16:20 Nucleated RBC % Not Reportable 07/31/18 16:20 Seg Neutrophils # 4.6 K/mm3 (1.8-7.7) 08/01/18 07:40 Seg Neutrophils # Man 12.3 K/mm3 (1.8-7.7) H 07/31/18 16:20 Band Neutrophils # 0.0 K/mm3 07/31/18 16:20 Lymphocytes # (Manual) 0.1 K/mm3 (1.2-5.4) L 07/31/18 16:20 Abs React Lymphs (Man) 0.0 K/mm3 07/31/18 16:20 Monocytes # (Manual) 0.0 K/mm3 (0.0-0.8) 07/31/18 16:20 Eosinophils # (Manual) 0.0 K/mm3 (0.0-0.4) 07/31/18 16:20 Basophils # (Manual) 0.0 K/mm3 (0.0-0.1) 07/31/18 16:20 Metamyelocytes # 0.0 K/mm3 07/31/18 16:20 Myelocytes # 0.0 K/mm3 07/31/18 16:20 Promyelocytes # 0.0 K/mm3 07/31/18 16:20 Blast Cells # 0.0 K/mm3 07/31/18 16:20 WBC Morphology Not Reportable 07/31/18 16:20 Hypersegmented Neuts Not Reportable 07/31/18 16:20 Hyposegmented Neuts Not Reportable 07/31/18 16:20 Hypogranular Neuts Not Reportable 07/31/18 16:20 Smudge Cells Not Reportable 07/31/18 16:20 Toxic Granulation Not Reportable 07/31/18 16:20 Toxic Vacuolation Not Reportable 07/31/18 16:20 Dohle Bodies Not Reportable 07/31/18 16:20 Pelger-Huet Anomaly Not Reportable 07/31/18 16:20 Laura Rods Not Reportable 07/31/18 16:20 Platelet Estimate Consistent w auto 07/31/18 16:20 Clumped Platelets Not Reportable 07/31/18 16:20 Plt Clumps, EDTA Not Reportable 07/31/18 16:20 Large Platelets Not Reportable 07/31/18 16:20 Giant Platelets Not Reportable 07/31/18 16:20 Platelet Satelliting Not Reportable 07/31/18 16:20 Plt Morphology Comment Not Reportable 07/31/18 16:20 RBC Morphology Not Reportable 07/31/18 16:20 Dimorphic RBCs Not Reportable 07/31/18 16:20 Polychromasia Few 07/31/18 16:20 Hypochromasia Not Reportable 07/31/18 16:20 Poikilocytosis 1+ 07/31/18 16:20 Anisocytosis 1+ 07/31/18 16:20 Microcytosis 1+ 07/31/18 16:20 Macrocytosis Not Reportable 07/31/18 16:20 Spherocytes Not Reportable 07/31/18 16:20 Pappenheimer Bodies Not Reportable 07/31/18 16:20 Sickle Cells Not Reportable 07/31/18 16:20 Target Cells Few 07/31/18 16:20 Tear Drop Cells Not Reportable 07/31/18 16:20 Ovalocytes Few 07/31/18 16:20 Helmet Cells Not Reportable 07/31/18 16:20 [place] Bodies Not Reportable 07/31/18 16:20 [place] Rings Not Reportable 07/31/18 16:20 [place] Cells Not Reportable 07/31/18 16:20 Bite Cells Not Reportable 07/31/18 16:20 Crenated Cell Not Reportable 07/31/18 16:20 Elliptocytes Not Reportable 07/31/18 16:20 Acanthocytes (Spur) Not Reportable 07/31/18 16:20 Rouleaux Not Reportable 07/31/18 16:20 Hemoglobin C Crystals Not Reportable 07/31/18 16:20 Schistocytes Not Reportable 07/31/18 16:20 Malaria parasites Not Reportable 07/31/18 16:20 Augie Bodies Not Reportable 07/31/18 16:20 Hem Pathologist Commnt No 07/31/18 16:20 PT 14.6 Sec. (12.2-14.9) 07/31/18 14:44 INR 1.10 (0.87-1.13) 07/31/18 14:44 D-Dimer 507.46 ng/mlDDU (0-234) H 08/04/18 10:00 POC ABG pH 7.452 (7.35-7.45) H 08/05/18 10:56 POC ABG pCO2 44.8 (35-45) 08/05/18 10:56 POC ABG pO2 63 (80-105) L 08/05/18 10:56 POC ABG HCO3 31.2 08/05/18 10:56 POC ABG Total CO2 33 08/05/18 10:56 POC ABG O2 Sat 93 08/05/18 10:56 POC ABG Base Excess 7 08/05/18 10:56 FiO2 21 % 08/05/18 10:56 Sodium 142 mmol/L (137-145) 08/05/18 07:00 Potassium 4.1 mmol/L (3.6-5.0) 08/05/18 07:00 Chloride 98.0 mmol/L (98-107) 08/05/18 07:00 Carbon Dioxide 30 mmol/L (22-30) 08/05/18 07:00 Anion Gap 18 mmol/L 08/05/18 07:00 BUN 26 mg/dL (7-17) H 08/05/18 07:00 Creatinine 0.6 mg/dL (0.7-1.2) L 08/05/18 07:00 Estimated GFR > 60 ml/min 08/05/18 07:00 BUN/Creatinine Ratio 43 % 08/05/18 07:00 Glucose 170 mg/dL (65-100) H 08/05/18 07:00 Hemoglobin A1c 6.7 % (4-6) H 07/31/18 Unknown Calcium 9.4 mg/dL (8.4-10.2) 08/05/18 07:00 Total Bilirubin 0.60 mg/dL (0.1-1.2) 08/01/18 07:40 AST 29 units/L (5-40) 08/01/18 07:40 ALT 37 units/L (7-56) 08/01/18 07:40 Alkaline Phosphatase 67 units/L (35-129) 08/01/18 07:40 Total Creatine Kinase 1119 units/L (30-135) H 07/31/18 14:44 CK-MB (CK-2) 11.8 ng/mL (0.0-4.0) H 07/31/18 14:44 CK-MB (CK-2) Rel Index 1.0 (0-4) 07/31/18 14:44 Troponin T 0.049 ng/mL (0.00-0.029) H D 07/31/18 20:16 NT-Pro-B Natriuret Pep 15857 pg/mL (0-450) H 07/31/18 14:44 Total Protein 7.4 g/dL (6.3-8.2) 08/01/18 07:40 Albumin 3.6 g/dL (3.9-5) L 08/01/18 07:40 Albumin/Globulin Ratio 0.9 % 08/01/18 07:40 Triglycerides 90 mg/dL (2-149) 07/31/18 14:44 Cholesterol 151 mg/dL (50-199) 07/31/18 14:44 LDL Cholesterol Direct 77 mg/dL (50-130) 07/31/18 14:44 HDL Cholesterol 67 mg/dL (40-59) H 07/31/18 14:44 Cholesterol/HDL Ratio 2.25 % 07/31/18 14:44 Nutrition/Malnutrition Assess - Dietary Evaluation Nutrition/Malnutrition Findings: Nutrition Notes Start: 08/03/18 12:34 Freq: Status: Active Protocol: Document 08/03/18 12:34 LP (Rec: 08/03/18 12:37 LP [id number]) Nutrition Notes Need for Assessment generated from: Education Initial or Follow up Brief Note Current Diagnoses COPD Heart Failure Labs/Tests A1c 6.7 Subjective/Other Information Consult for diet education. Pt states not being aware of acute heart failure and wanting to lose wt. Gave pt information on the free DM class here. #1 Nutrition Diagnoses Food and nutrition-related knowledge deficit Etiology heart failure and consistent CHO As Evidenced by Signs and Symptoms A1c 6.7 Pro BNP 15,817 Nutrition Intervention Teaching Recipient Patient Learning Readiness Good Teaching Methods Discussion Handout Response to Teaching Verbalize understanding Education Handouts Provided Consistent CHO and heart failure Barriers to Learning No Barriers RD phone number provided Yes Patient aware of follow up options Yes Revisit per MD consult or patient Sign Off request:
[2018-08-05] MEDS: SODIUM CHLORIDE FLUSH SYRINGE 10 ML IV SCH ×2 (17:50→22:14)
[2018-08-05] MEDS: ZITHROMAX PO SCH (22:14)
[2018-08-06] MEDS: SOLU-Medrol IV SCH ×2 (01:26→10:16)
[2018-08-06] MEDS: LASIX IV SCH (06:24)
[2018-08-06 06:46] LABS: BUN/Creatinine Ratio 43; Blood Urea Nitrogen 26 mg/dL (7-17); Hemolysis Index 25
[2018-08-06 07:30] VITALS: BP 138/83
[2018-08-06] MEDS: DUONEB *Not for PRN Use IH SCH (08:26)
[2018-08-06] MEDS: PEPCID PO SCH (10:14)
[2018-08-06] MEDS: ZESTRIL PO SCH (10:14)
[2018-08-06] MEDS: SODIUM CHLORIDE FLUSH SYRINGE 10 ML IV SCH (10:15)
[2018-08-06] MEDS: ROCEPHIN/NS 2 GM/100 ML 2 GM/100 ML BAG IV SCH (10:15)
--- NOTE | 2018-08-06 12:56 | Consultation ---
History of Present Illness Consult date: 08/06/18 Reason for consult: dyspnea (hypoxia) History of present illness: It will evaluate case of a 38-year-old female with a past medical history of as thma, obesity, thrombocytopenia, and GERD presents to the hospital complaining of progressively worsening shortness of breath 3 days. Patient using inhaler without improvement. Cough productive of clear sputum reported. Patient went to urgent care center today because she had headache, dizziness, and generalized weakness as well as shortness of breath. She denies pain, leg edema, fevers, home oxygen use, orthopnea, or PND. She is referred to the ED for evaluation. Patient was prescribed a nebulizer by the urgent care clinic. She denies prior history of heart problems or COPD. She declares remote history of aspirin use an inhaler, after she moved to [place]. Not smoking. Doesn't not like snoring. She was scheduled to be discharged per noted to be hypoxic. The patient has been started on portable oxygen for use at home. An echocardiogram revealed evidence of left ventricular dysfunction with decreased ejection fraction of 35%, pulmonary hypertension. Chest CT scan was negative for pulmonary embolism with no ILD noted. Past History Past Medical History: GERD, other (asthma) Social history: denies: smoking, alcohol abuse, prescription drug abuse Medications and Allergies Allergies Allergy/AdvReac Type Severity Reaction Status Date / Time No Known Allergies Allergy Unverified 06/02/16 19:34 Home Medications Medication Instructions Recorded Confirmed Last Taken Type Pantoprazole [Protonix TAB] 40 mg PO DAILY #30 tablet 12/21/17 07/31/18 Unknown Rx Azithromycin [Zithromax TAB] 500 mg PO QDAY #3 tablet 08/03/18 Unknown Rx Carvedilol [Coreg] 3.125 mg PO BID #60 tablet 08/03/18 Unknown Rx Furosemide [Lasix TAB] 40 mg PO QDAY #30 tablet 08/03/18 Unknown Rx Lisinopril 20 mg PO DAILY #30 tablet 08/03/18 Unknown Rx cefUROXime [Ceftin] 500 mg PO Q12H 3 Days tablet 08/03/18 Unknown Rx Active Meds: Active Medications Acetaminophen (Tylenol) 650 mg PO Q4H PRN PRN Reason: Pain MILD(1-3)/Fever >100.5/BROWN Albuterol/Ipratropium (Duoneb *Not For Prn Use*) 1 ampul IH TIDRT [facility] Last Admin: 08/06/18 08:26 Dose: 1 ampul Documented by: Azithromycin (Zithromax) 500 mg PO QHS [facility] Last Admin: 08/05/18 22:14 Dose: 500 mg Documented by: Famotidine (Pepcid) 20 mg PO BID [facility] Last Admin: 08/06/18 10:14 Dose: 20 mg Documented by: Furosemide (Lasix) 40 mg IV 0600,1800 [facility] Last Admin: 08/06/18 06:24 Dose: 40 mg Documented by: Guaifenesin (Robitussin) 200 mg PO Q6H PRN PRN Reason: Cough Last Admin: 08/03/18 02:43 Dose: 200 mg Documented by: Hydromorphone HCl (Dilaudid) 0.5 mg IV Q3H PRN PRN Reason: Pain , Severe (7-10) Last Admin: 08/02/18 05:29 Dose: 0.5 mg Documented by: Ceftriaxone Sodium (Rocephin/Ns 2 Gm/100 Ml) 2 gm in 100 mls @ 200 mls/hr IV Q24HR [facility]; Protocol Last Admin: 08/06/18 10:15 Dose: 200 mls/hr Documented by: Lisinopril (Zestril) 20 mg PO QDAY [facility] Last Admin: 08/06/18 10:14 Dose: 20 mg Documented by: Methylprednisolone Sodium Succinate (Solu-Medrol) 40 mg IV Q8H [facility] Last Admin: 08/06/18 10:16 Dose: 40 mg Documented by: Ondansetron HCl (Zofran) 4 mg IV Q8H PRN PRN Reason: Nausea And Vomiting Oxycodone/Acetaminophen (Percocet 5/325) 1 tab PO Q6H PRN PRN Reason: Pain, Moderate (4-6) Last Admin: 08/02/18 03:42 Dose: 1 tab Documented by: Sodium Chloride (Sodium Chloride Flush Syringe 10 Ml) 10 ml IV BID [facility] Last Admin: 08/06/18 10:15 Dose: 10 ml Documented by: Sodium Chloride (Sodium Chloride Flush Syringe 10 Ml) 10 ml IV PRN PRN PRN Reason: LINE FLUSH Review of Systems Constitutional: weight gain Cardiovascular: other (see HPI) Respiratory: other (see HPI) Neurological: other (snoring, poor sleep) Physical Examination Vital signs: Vital Signs Temp Pulse Resp BP Pulse Ox 98.0 F 121 H 26 H 129/84 92 07/31/18 14:12 07/31/18 14:12 07/31/18 14:12 07/31/18 14:12 07/31/18 14:12 General appearance: no acute distress, alert, other (morbidly obese female) Eyes: non-icteric ENT: oropharynx moist, other (Mallampati 3) Neck: no JVD Ascultation: Bilateral: clear, diminished breath sounds Cardiovascular: regular rate and rhythm Gastrointestinal: normoactive bowel sounds Integumentary: normal Extremities: no cyanosis, no edema, pink and warm normal mental status, CN II-XII normal, motor strength normal and Results - Laboratory Findings CBC and BMP: 08/05/18 07:00 08/06/18 06:08 ABG POC ABG pH 7.452 (7.35-7.45) H 08/05/18 10:56 POC ABG pCO2 44.8 (35-45) 08/05/18 10:56 POC ABG pO2 63 (80-105) L 08/05/18 10:56 POC ABG HCO3 31.2 08/05/18 10:56 POC ABG Total CO2 33 08/05/18 10:56 POC ABG O2 Sat 93 08/05/18 10:56 PT/INR, D-dimer PT 14.6 Sec. (12.2-14.9) 07/31/18 14:44 INR 1.10 (0.87-1.13) 07/31/18 14:44 D-Dimer 507.46 ng/mlDDU (0-234) H 08/04/18 10:00 Abnormal lab findings: Abnormal Labs 07/31/18 07/31/18 07/31/18 14:44 14:44 16:20 WBC 12.4 H RBC 5.17 H Hct MCV 75 L MCH 23 L RDW 16.2 H Plt Count 100 L [place] % (Auto) Lymph # Seg Neutrophils % Seg Neuts % (Manual) 99.0 H Lymphocytes % (Manual) 1.0 L Seg Neutrophils # Man 12.3 H Lymphocytes # (Manual) 0.1 L D-Dimer POC ABG pH POC ABG pO2 Sodium 136 L Potassium 5.2 H Chloride 97.5 L BUN Creatinine 0.4 L Glucose 120 H Hemoglobin A1c Total Creatine Kinase 1119 H CK-MB (CK-2) 11.8 H Troponin T 0.079 H NT-Pro-B Natriuret Pep 95030 H Albumin HDL Cholesterol 67 H 07/31/18 07/31/18 07/31/18 18:44 20:16 Unknown WBC RBC Hct MCV MCH RDW Plt Count [place] % (Auto) Lymph # Seg Neutrophils % Seg Neuts % (Manual) Lymphocytes % (Manual) Seg Neutrophils # Man Lymphocytes # (Manual) D-Dimer POC ABG pH POC ABG pO2 Sodium Potassium Chloride BUN Creatinine Glucose Hemoglobin A1c 6.7 H Total Creatine Kinase CK-MB (CK-2) Troponin T 0.065 H 0.049 H D NT-Pro-B Natriuret Pep Albumin HDL Cholesterol 08/01/18 08/01/18 08/04/18 07:40 07:40 10:00 WBC RBC Hct MCV 75 L MCH 23 L RDW 15.9 H Plt Count 113 L [place] % (Auto) 10.6 H Lymph # 0.9 L Seg Neutrophils % 74.0 H Seg Neuts % (Manual) Lymphocytes % (Manual) Seg Neutrophils # Man Lymphocytes # (Manual) D-Dimer 507.46 H POC ABG pH POC ABG pO2 Sodium Potassium Chloride BUN Creatinine 0.5 L Glucose 137 H Hemoglobin A1c Total Creatine Kinase CK-MB (CK-2) Troponin T NT-Pro-B Natriuret Pep Albumin 3.6 L HDL Cholesterol 08/05/18 08/05/18 08/05/18 07:00 07:00 10:56 WBC RBC 5.97 H Hct 44.7 H MCV 75 L MCH 23 L RDW 15.5 H Plt Count [place] % (Auto) Lymph # Seg Neutrophils % Seg Neuts % (Manual) Lymphocytes % (Manual) Seg Neutrophils # Man Lymphocytes # (Manual) D-Dimer POC ABG pH 7.452 H POC ABG pO2 63 L Sodium Potassium Chloride BUN 26 H Creatinine 0.6 L Glucose 170 H Hemoglobin A1c Total Creatine Kinase CK-MB (CK-2) Troponin T NT-Pro-B Natriuret Pep Albumin HDL Cholesterol 08/06/18 06:08 WBC RBC Hct MCV MCH RDW Plt Count [place] % (Auto) Lymph # Seg Neutrophils % Seg Neuts % (Manual) Lymphocytes % (Manual) Seg Neutrophils # Man Lymphocytes # (Manual) D-Dimer POC ABG pH POC ABG pO2 Sodium Potassium Chloride 96.7 L BUN 26 H Creatinine 0.6 L Glucose 170 H Hemoglobin A1c Total Creatine Kinase CK-MB (CK-2) Troponin T NT-Pro-B Natriuret Pep Albumin HDL Cholesterol - Diagnostic Findings Chest x-ray: report reviewed, image reviewed CT scan - chest: report reviewed, image reviewed Assessment and Plan Hypoxemia. Probably secondary to combination of acute pulmonary vascular congestion and perhaps chronic pulmonary hypertension Congestive heart failure/cardiomyopathy with compensation CAP Obesity hypoventilation syndrome? Borderline hypercapnia on ABGs PONCHO also to be excluded Morbid obesity Remote history of asthma Recommendations I agree with portable oxygen. Complete antibiotics Patient needs sleep study evaluation as an outpatient in order to establish possible sleep apnea and also some proper treatment Outpatient PFT evaluation for asthma/COPD and also follow-up on her oxygen treatment I agree with weight reduction program Follow-up cardiology recommendations regarding CHF/cardiomyopathy DVT prophylaxis Exercise as tolerated Albumin inhaler 2 puffs every 4-6 hours when necessary for wheezing or shortness of breath Discussed with patient in detail. All questions answered. Business card given for outpatient follow-up appointment with pulmonary. Thanks
--- NOTE | 2018-08-06 14:04 | Discharge Summary ---
Providers - Providers Date of Admission: 07/31/18 17:46 Attending physician: LUIS PIERCE MD 07/31/18 16:18 Consult to Physician [CONS] Urgent Comment: Consulting Provider: CLEVE LOZADA Physician Instructions: Reason For Exam: sob, infiltrates, elevated bnp 08/02/18 14:09 Consult to Dietitian/Nutrition [CONS] Routine Physician Instructions: Reason For Exam: Reason for Consult: Diet education 08/04/18 13:52 Consult to Physician [CONS] Routine Comment: Consulting Provider: AUSTEN MARQUEZ Physician Instructions: Reason For Exam: Acute resp failure,hypoxic Primary care physician: RESAW CARRIAGE OPERATOR Hospitalization Condition: Fair Hospital course: Patient is 38-year-old with asthma,obesity, . She presented with shortness of b reath. She was diagnosed with cute respiratory failure secondary to acute systolic CHF and pneumonia. * She was diuresed for CHF, she received cardiology consultation * She was diagnosed with acute respiratory failure, she was treated with oxygen. * She also receives steroids and nebulizer for reactive airway disease. * CT angiographic chest was negative for pulmonary embolism, ILD. She received pulmonology consultation * She received antibiotics during the hospital stay and is being discharged on oral course * Home oxygen was set up for her prior to discharge * She was counseled on lifestyle modification and diet modification for newly diagnosed diabetes, she is advised to possibly trying a weight loss program after she has clinically improved. The patient will obtain a referral from her PCP Diagnoses Acute systolic CHF Acute resp failure with hypoxia. Asthma Hyperkalemia Dm a1c 6.7 Obesity. CAP Disposition: - TO HOME OR SELFCARE Time spent for discharge: 44 minutes Core Measure Documentation - Palliative Care Palliative Care/ Comfort Measures: Not Applicable - Core Measures Any of the following diagnoses?: heart failure - Heart Failure Discharge Requirements BELLA/ARB for LVSD if EF <40%: Yes Beta arie at discharge: Yes Exam - Constitutional Vitals: Temp Pulse Resp BP Pulse Ox 98.0 F 89 5 L 138/83 97 08/06/18 07:28 08/06/18 10:14 08/06/18 10:00 08/06/18 10:14 08/06/18 10:00 General appearance: Present: no acute distress, well-nourished - EENT Eyes: Present: PERRL ENT: hearing intact, clear oral mucosa - Neck Neck: Present: supple, normal ROM - Respiratory Respiratory effort: normal Respiratory: bilateral: CTA - Cardiovascular Heart Sounds: Present: S1 & S2. Absent: rub, click - Extremities Extremities: pulses symmetrical, No edema Peripheral Pulses: within normal limits - Abdominal General gastrointestinal: Present: soft, non-tender, non-distended, normal bowel sounds Female genitourinary: Present: normal - Integumentary Integumentary: Present: clear, warm, dry - Musculoskeletal Musculoskeletal: gait normal, strength equal bilaterally - Psychiatric Psychiatric: appropriate mood/affect, intact judgment & insight - Neurologic Neurologic: CNII-XII intact, moves all extremities Plan Follow up with: PRIMARY CARE,MD [Primary Care Provider] - 7 Days Prescriptions: Azithromycin [Zithromax TAB] 500 mg PO QDAY #3 tablet Carvedilol [Coreg] 3.125 mg PO BID #60 tablet cefUROXime [Ceftin] 500 mg PO Q12H 3 Days tablet Furosemide [Lasix TAB] 40 mg PO QDAY #30 tablet Lisinopril 20 mg PO DAILY #30 tablet Other Discharge Orders: Oxygen (Amb) Location: None Selected
--- NOTE | 2018-08-06 16:08 | Query-Infection ---
"Ramos Hartman___Valerie Date:__08/06/2018 [employer]/CDS:___Ashley Phone#:_[phone] Exercise your independent professional judgment when responding to this query. Questions asked do not imply a particular answer is desired or expected. We greatly appreciate your clarification on this issue. Clinical Documentation States: Patient is 38-year-old with asthma,obesity, low platelets. She presented with shortness of breath. She was diagnosed with acute respiratory failure secondary to acute systolic CHF and pneumonia. Patient was started on Lasix IV, antibiotics and admitted. Pneumonia as per CXR Continue iv Abx Clinical findings show: (please check applicable parameters) SC (07/31): 121 RR (07/31): 26 WBC (07/31): 12.4 Infection, known /suspected, with some of the following indicators; Specify the infection: General parameters [ ] Fever (core temp >38.30C or 100.40F) [ ] Hypothermia (core temp <36C) [ ] Heart rate >90 bpm [ ] Tachypnea: >20 bpm or pCO2 < 32 mmHg [ ] Altered mental status [ ] Significant edema / +ve fluid balance (>20 ml/kg 24 h) [ ] Hyperglycemia (Bl. glucose >110 mg/dl) w/o diabetes Inflammatory parameters [ ] Leukocytosis (white blood cell count >12,000/l) [ ] Leukopenia (white blood cell count <4,000/l) [ ] Bandemia (immature WBC > 10%) [ ] Leucocyte Left Shift [ ] Plasma procalcitonin>2 SD above the normal value Hemodynamic and tissue perfusion parameters [ ] Arterial hypotension(SBP <90 mmHg, MAP <70 mmHg,or a SBP drop >40 mmHg in adults) [ ] Hyperlactatemia (>3 mmol/l) [ ] Anion Gap (> 11mEG/l) [ ] Decreased capillary refill or mottling Organ dysfunction parameters [ ] Arterial hypoxemia (PaO2/FIO2 <300) [ ] Creatinine increase =0.5 mg/dl [ ] Acute oliguria (urine output <0.5 ml | kg |h or 45 mM/l for at least 2 hrs) [ ] Coagulation abnormalities (INR >1.5 or activated partial thromboplastin time >60 s) [ ] Ileus (absent adalberto wel sounds) [ ] Thrombocytopenia (platelet count <100,000/l) [ ] Hyperbilirubinemia (plasma total bilirubin >4 mg/dl) According to the clinical indications above, can Bacteremia be further specified? If so, please indicate below and in your Progress Notes and/ or Discharge Summary. Indicate if the condition was present on admission. PHYSICIAN RESPONSE: [ ] Sepsis [ ] Severe Sepsis [ ] Septic Shock [ ] Septicemia [ ] Sepsis now resolved [x ] SIRS due to non-infectious cause with organ dysfunction [ ] SIRS due to non-infectious cause without organ dysfunction [ ] Other: [ x] Comment/Explanation:___PNA was ruled out ON CT chest Present on Admission: [x ] Yes (Y) [ ] Clinically undeterminable (W) [ ] No (N) [ ] Ruled Out Please also document response in your Progress Notes and/or Discharge Summary and indicate if the condition was present on admission Notes: SIRS/ SIRS WITH ORGAN DYSFUNCTION Systemic inflammatory response syndrome (SIRS) generally refers to the systemic response to trauma/puckett or other insult such as Acute Myocardial Infarction, Acute Pancreatitis, and Major Surgery with symptoms including fever, tachycardia, tachypnea, and leukocytosis (1). BACTEREMIA Presence of viable bacteria in the circulating blood (2). This term is reserved for patients that do not manifest above SIRS response. SEPTICEMIA Generally refers to a systemic disease associated with the presence of pathological microorganisms or toxins in the blood, which can include bacteria, viruses, fungi or other organisms (1). SEPSIS Generally refers to SIRS due infection (1). SEVERE SEPSIS Generally refers to sepsis associated with acute organ dysfunction (1). SEPTIC SHOCK Generally refers to circulatory failure associated with severe sepsis (2), and defined as hypotension or hypoperfusion despite adequate fluid resuscitation (1 hour) (3). REFERENCES: 1. [employer]/Society of Critical Care Medicine Consensus Conference. Definitions for sepsis and organ failure and guidelines for the use of innovative therapies in sepsis. Critical Care Med 1992;20:864 - 74. 2. Fermin najera MM, Salty MP, Cruzito PALMA, Roderick E, Jeffrey Castro, Alexander D, West J, Stratton SM, Bentley JL, Judith G; International Sepsis Definitions Conference. 2001 SCCM/ESICM/ACCP/ATS/SIS International Sepsis Definitions Conference. Intensive Care Med. 2002;29(4):530-8. Epub 2002Oct 24. Review. PubMed PMID:[id number] 3. ICD-9-CM Official Guidelines for Coding and Reporting 4. Medscape Drugs, Diseases and Procedures references 5. [employer] Textbook of Internal Medicine. 18th Edition MTDD"
== END 2018-08-06 14:27 | disposition home or self-care (01) | DRG 291 ==
LOC: ED 14:08 → 4A 17:46
PROVIDERS: ADMIT Internal Medicine; ATTEND Internal Medicine
DX: I50.21 Acute systolic (congestive) heart failure (principal); J96.01 Acute respiratory failure with hypoxia; R65.11 Systemic inflammatory response syndrome (SIRS) of non-infectious origin with acute organ dysfunction; J18.9 Pneumonia, unspecified organism; E87.1 Hypo-osmolality and hyponatremia; I42.9 Cardiomyopathy, unspecified; J45.901 Unspecified asthma with (acute) exacerbation; J44.1 Chronic obstructive pulmonary disease with (acute) exacerbation; E87.5 Hyperkalemia; K21.9 Gastro-esophageal reflux disease without esophagitis; D69.6 Thrombocytopenia, unspecified; I27.20 Pulmonary hypertension, unspecified; E66.01 Morbid (severe) obesity due to excess calories; Z68.37 Body mass index [BMI] 37.0-37.9, adult; Z79.899 Other long term (current) drug therapy; Z86.2 Personal history of diseases of the blood and blood-forming organs and certain disorders involving the immune mechanism
CPT/HCPCS: 36415; 71046; 71275; 80048; 80053; 80061; 82550; 82553; 82803; 83036; 83880; 84484; 85007; 85025; 85027; 85379; 85610; 87040; 93005; 93010; 93306; 94640; 94644; 94760; 96365; 96367; 96375; G0378; J0456; J0696; J1170; J1200; J1940; J2920; J2930; J3475; J7030; J7050; Q9967

== ENCOUNTER 2021-03-02 00:41 | Emergency (ER) | payer MEDICARE ==
[2021-03-02 02:50] LABS: Basophils % (Auto) 0.2 % (0.0-1.8); Eosinophils # (Auto) 0.1 K/mm3 (0.0-0.4); Eosinophils % (Auto) 0.6 % (0.0-4.3); Hematocrit 32.7 % (30.3-42.9); Hemoglobin 10.5 gm/dl (10.1-14.3); Lymphocytes # (Auto) 0.8 K/mm3 (1.2-5.4); Lymphocytes % (Auto) 7.7 % (13.4-35.0); Mean Corpuscular HGB Conc 32 % (30-34); Mean Corpuscular Volume 73 fl (79-97); Monocytes # (Auto) 0.4 K/mm3 (0.0-0.8); Monocytes % (Auto) 4.1 % (0.0-7.3); Platelet Count 106 K/mm3 (140-440); Red Cell Distribution Width 15.3 % (13.2-15.2)
[2021-03-02 03:10] LABS: Blood Urea Nitrogen 16 mg/dL (7-17); Calcium 8.4 mg/dL (8.4-10.2); Hemolysis Index 0
[2021-03-02 03:14] VITALS: BP 94/54
[2021-03-02 03:19] LABS: BUN/Creatinine Ratio 40
== END 2021-03-02 08:30 | disposition left against medical advice (07) ==
LOC: ED 00:41
DX: K92.1 Melena (principal); Z53.21 Procedure and treatment not carried out due to patient leaving prior to being seen by health care provider
CPT/HCPCS: 36415; 80048; 85025